=== PATIENT | male | born 1970 ===

== ENCOUNTER 2017-07-19 02:30 | Inpatient (IN) | payer MEDICAID, OTHER ==
[2017-07-19 02:38] VITALS: BMI 32.8
--- NOTE | 2017-07-19 02:43 | C.PDOC ---
History Of Present Illness pt found next to a building by police. ems was called. Pt not answering questions. was hypertensive at the scene. No obvious signs of trauma. Unable to obtain any history from the patient. he just grunts. Moves all extremities Time Seen by Provider: 07/19/17 02:31 Chief Complaint (Nursing): Altered Mental Status History Per: EMS History/Exam Limitations: Clinical Condition Onset/Duration Of Symptoms: Unknown Current Symptoms Are (Timing): Still Present Usual Baseline: Unknown Exacerbating Factor(s): Unknown Use Of Anticoag/Antiplatelets: Unknown Speech Is: Other (grunting) Decreased Ability To: Stand, Walk, Sit Severity: Severe Pain Scale Rating Of: 10 Additional History Per: EMS Associated Symptoms: Vomiting Past Medical History Reviewed: Historical Data, Nursing Documentation, Vital Signs Vital Signs: Last Vital Signs Temp 98 F 07/19/17 02:36 Pulse 82 07/19/17 04:29 Resp 16 07/19/17 04:29 BP 156/89 H 07/19/17 04:29 Pulse Ox 96 07/19/17 04:47 Family History: States: No Known Family Hx Review Of Systems Review Of Systems: ROS cannot be obtained secondary to pt's inabilty to answer questions. Physical Exam - Physical Exam Skin: Diaphoretic, Pale Head: Atraumatic, Normacephalic Eye(s): bilateral: Abnormal Pupil (pinpoint) Ear(s): Bilateral: Normal Nose: Normal Oral Mucosa: Moist Tongue: Normal Appearing Lips: Normal Appearing Neck: Supple Chest: Symmetrical Cardiovascular: Rhythm Regular Respiratory: No Rales, Rhonchi, No Wheezing Gastrointestinal/Abdominal: Bowel Sounds (tympanic to percussion), Soft, Tenderness (llq), Distention, Guarding, No Rebound, No Hernia Extremity: No Pedal Edema, Capillary Refill (wnl) Extremity: Bilateral: Atraumatic, Normal Color And Temperature Pulses: Left Dorsalis Pedis: Normal, Right Dorsalis Pedis: Normal Neurological/Psych: Other (grunting, moving all extremities ) Gait: Unable To Assess ED Course And Treatment - Laboratory Results Result Diagrams: 07/19/17 02:54 07/19/17 02:54 ECG: Interpreted By Me, Viewed By Me ECG Rhythm: Sinus Rhythm (73), Nonspecific Changes O2 Sat by Pulse Oximetry: 96 Pulse Ox Interpretation: Normal - Radiology CXR: Interpreted by Me, Viewed By Me Progress Note: 2:33 code stroke called. 3:[address] larson. awaiting ct results. 3:15 as per nurse pt did speak in [place] to the director of clinical applications, states that he has abdominal pain. nods to some questions in the ed. 3:22 when asked in [place], pt showed that he had abdominal pain for about 7 days. showed days using his fingers. 3:45 some family friends at bedside. Pt now that pain is controlled states that he had abdominal pain. denies any alcohol use Critical Care Time - Critical Care Note Total Time (in mins): 45 Documented critical care: time excludes all time spent performing seperately billable procedures. NIHSS Stroke Scale - Date/Time Evaluation Performed Date Performed: 07/19/17 Time Performed: 02:31 When Was NIHSS Performed: Baseline - How Severe is the Stoke Level of Consciousness: 1=Drowsy LOC to Questions: 2=Neither correct LOC to commands: 2=Neither correct Best Gaze: 0=Normal Visual: 0=No visual loss Facial: 0=Normal Motor Arm - Left: 0=No drift Motor Arm - Right: 0=No drift Motor Leg - Left: 0=No drift Motor Leg - Right: 0=No drift Limb Ataxia: 0=Absent Sensory: 0=Normal Best Language: 2=Severe aphasia Dysarthia: 2=Severe, near unintelligible or worse Extinction & Inattention (Neglect): 0=Normal, no object Score: 9 Severity Of Stroke: 5-15= Moderate Stroke Disposition Discussed With DrBridgett: Francisco Le Comment: accepted the pt onhis service and took over the care at 5:11 AM Counseled Patient/Family Regarding: Studies Performed, Diagnosis - Disposition Disposition: HOSPITALIZED Disposition Time: 02:40 Condition: GUARDED Forms: Apaja (Bruneian) - Clinical Impression Clinical Impression: Abdominal pain, Acute pancreatitis Decision To Admit - Pt Status Changed To: Hospital Disposition Of: Inpatient - Admit Certification Admit to Inpatient:: After my assessment, the patient will require hospitalization for at least two midnights. This is because of the severity of symptoms shown, intensity of services needed, and/or the medical risk in this patient being treated as an outpatient. - InPatient: Physician Admission Certification:: After my assessment, the patient will require hospitalization for at least two midnights. This is because of the severity of symptoms shown, intensity of services needed, and/or the medical risk in this patient being treated as an outpatient. - . Bed Request Type: Telemetry Admitting Physician: Francisco Le Patient Diagnosis: Abdominal pain, Acute pancreatitis
[2017-07-19 03:01] LABS: BASO % 0.3 % (0.0-2.0); EOS # 0.3 K/uL (0.0-0.7); EOS % 3.5 % (0.0-4.0); HEMOGLOBIN 15.4 g/dL (12.0-18.0); LYMPH # 3.2 K/uL (1.0-4.3); LYMPH % 40.2 % (20.0-40.0); MEAN CELL VOLUME 83.7 fL (80.0-94.0); MEAN CORPUSCULAR HEMOGLOBIN 28.9 pg (27.0-31.0); MEAN CORPUSCULAR HGB CONC 34.6 g/dL (33.0-37.0); MEAN PLATELET VOLUME 9.9 fL (7.2-11.7); MONO # 0.9 K/uL (0.0-0.8); MONO % 11.8 % (0.0-10.0); NEUT # 3.5 K/uL (1.8-7.0); NEUT % 44.2 % (50.0-75.0); NRBC % 0.1 % (0.0-2.0); RBC 5.32 Mil/uL (4.40-5.90); RED CELL DISTRIBUTION WIDTH 12.9 % (11.5-14.5)
[2017-07-19 03:05] LABS: VENOUS BLOOD GAS BASE EXCESS 3.1 mmol/L (0.0-2.0); VENOUS BLOOD GAS PCO2 56 mmHg (40-60); VENOUS BLOOD GAS PO2 17 mm/Hg (30-55); VENOUS BLOOD PH 7.34 (7.32-7.43)
[2017-07-19 03:12] LABS: ALB/GLOB RATIO 1.5 (1.0-2.1); ALBUMIN 4.5 g/dL (3.5-5.0); ALT/SGPT 27 U/L (21-72); AST/SGOT 25 U/L (17-59); BLOOD UREA NITROGEN 21 mg/dL (9-20); CALCIUM 9.2 mg/dl (8.6-10.4); GFR AFRICAN-AMERICAN > 60; GFR NON-AFRICAN AMERICAN > 60; HDL CHOLESTEROL 46 mg/dL (30-70)
[2017-07-19 03:23] LABS: LDL CHOLESTEROL 129 mg/dL (0-129)
[2017-07-19 03:28] LABS: BARBITURATES, UR NEGATIVE (NEGATIVE); BENZODIAZEPINES, UR NEGATIVE (NEGATIVE); OPIATES, UR NEGATIVE (NEGATIVE); PHENCYCLIDINE, UR NEGATIVE (NEGATIVE)
[2017-07-19] MEDS ORDERED: Morphine 4 MG/ML VIAL ONE ×3 (03:29→09:01)
[2017-07-19 04:03] LABS: URINE BILIRUBIN NEGATIVE (NEGATIVE); URINE BLOOD NEGATIVE (NEGATIVE); URINE CLARITY Clear (Clear); URINE COLOR Straw (YELLOW); URINE GLUCOSE (UA) 2+ mg/dL (Normal); URINE LEUKOCYTE ESTERASE NEG Leu/uL (Negative); URINE NITRATE NEGATIVE (NEGATIVE); URINE PROTEIN NEGATIVE (NEGATIVE); URINE UROBILINOGEN NORMAL mg/dL (0.2-1.0)
--- NOTE | 2017-07-19 04:11 | CT ---
EXAM: CT Angiography Head With Intravenous Contrast CLINICAL HISTORY: 47 years old, male; Signs and symptoms; Other: Not respond; Additional info: Code stroke TECHNIQUE: Axial computed tomographic angiography images of the head with intravenous contrast using CT angiography protocol. All CT scans at this facility use one or more dose reduction techniques, viz.: automated exposure control; ma/kV adjustment per patient size (including targeted exams where dose is matched to indication; i.e. head); or iterative reconstruction technique. MIP reconstructed images were created and reviewed. Coronal and sagittal reformatted images were created and reviewed. CONTRAST: 100 mL of [id number] administered intravenously. COMPARISON: No relevant prior studies available. FINDINGS: No wood repatcher view provided. No noncontrast images provided thus intracranial hemorrhage cannot be excluded. The internal carotid arteries are patent. The middle cerebral arteries are patent. The anterior cerebral arteries appear diminutive however are visualized. The basilar artery is diminutive however patent. The P1 segment of the right posterior cerebral artery appears atrophic with the P2 segment being supplied by the anterior circulation. The left posterior cerebral artery is patent. There appears to be decreased morrison-white matter differentiation, a finding concerning for developing diffuse edema. IMPRESSION: No acute occlusion. The vessels appear somewhat diminutive in general and the morrison-white matter differentiation appears decreased, the combination of findings raises concern for developing edema. Clinical correlation is recommended. Please note no wood repatcher, 3-D recons, or noncontrast images were provided. EXAM: CT Angiography Neck With Intravenous Contrast EXAM DATE/TIME: 07/19/2017 2:38 AM CLINICAL HISTORY: 47 years old, male; Signs and symptoms; Other: Not respond; Additional info: Code stroke TECHNIQUE: Axial computed tomographic angiography images of the neck with intravenous contrast using CT angiography protocol. All CT scans at this facility use one or more dose reduction techniques, viz.: automated exposure control; ma/kV adjustment per patient size (including targeted exams where dose is matched to indication; i.e. head); or iterative reconstruction technique. MIP reconstructed images were created and reviewed. Coronal and sagittal reformatted images were created and reviewed. CONTRAST: 100 mL of [id number] administered intravenously. COMPARISON: No relevant prior studies available. FINDINGS: No wood repatcher view was provided. Patient motion is present limiting exam. There is a dominant left vertebral artery. The distal right vertebral artery is not well. I suspect it may be hypotrophic or possibly normal variant termination into another vessel. Please note 3-D reconstructions were not provided. The basilar artery is diminutive however appears patent. The common carotid and cervical portions of the internal carotid arteries are patent without occlusion or dissection. The soft tissues of the neck appear normal. The airway is patent. Limited evaluation of the cervical vertebrae due to artifact. Dedicated CT of the spine could be performed if there is concern for cervical spine injury. IMPRESSION: Patient motion. Dominant left vertebral artery. No wood repatcher view provided.
[2017-07-19 04:17] LABS: BARBITURATES, UR NEGATIVE (NEGATIVE); BENZODIAZEPINES, UR NEGATIVE (NEGATIVE); PHENCYCLIDINE, UR NEGATIVE (NEGATIVE)
[2017-07-19 04:20] LABS: OPIATES, UR POSITIVE (NEGATIVE)
--- NOTE | 2017-07-19 04:32 | CT ---
EXAM: CT Abdomen and Pelvis With Intravenous Contrast CLINICAL HISTORY: 47 years old, male; Pain; Other: Not repond / code stroke; Other: Not respond TECHNIQUE: Axial computed tomography images of the abdomen and pelvis with intravenous contrast. All CT scans at this facility use one or more dose reduction techniques, viz.: automated exposure control; ma/kV adjustment per patient size (including targeted exams where dose is matched to indication; i.e. head); or iterative reconstruction technique. No reconstructions sent. CONTRAST: 100 mL of [id number] administered intravenously. COMPARISON: No relevant prior studies available. FINDINGS: The gallbladder, liver, and spleen are normal. The kidneys are in the excretory phase of contrast in the collecting systems and ureters and urinary bladder. The pancreatic body and tail are heterogeneous with significant surrounding fluid. The gastric lumen is dilated with a large amount of ingested fluid. This may be partially secondary to ileus from adjacent pancreatitis. Small bowel loops in the left upper quadrant demonstrate mild wall thickening suspected to be either incidental or secondary to adjacent pancreatitis. A normal appendix is identified on axial series 6 images 130 - 142. IMPRESSION: Heterogeneous edematous pancreatic parenchyma with surrounding fluid. Findings supportive of pancreatitis. Recommend correlation with amylase and lipase. Findings discussed with Dr. Russell. EXAM: CT Chest With Intravenous Contrast EXAM DATE/TIME: 07/19/2017 2:38 AM CLINICAL HISTORY: 47 years old, male; Pain; Other: Not repond / code stroke; Other: Not respond TECHNIQUE: Axial computed tomography images of the chest with intravenous contrast. All CT scans at this facility use one or more dose reduction techniques, viz.: automated exposure control; ma/kV adjustment per patient size (including targeted exams where dose is matched to indication; i.e. head); or iterative reconstruction technique. Coronal and sagittal reformatted images were created and reviewed. CONTRAST: 100 mL of administered intravenously. COMPARISON: No relevant prior studies available. FINDINGS: No aortic dissection or aneurysm. No pleural or pericardial effussions. No focal infiltrates. Area of sclerosis is noted in the right fourth rib. IMPRESSION: No acute findings.
[2017-07-19] MEDS: Lactated Ringer's 1,000 ML IV SCH ×5 (05:16→21:00)
--- NOTE | 2017-07-19 06:03 | CP.PCM.HP ---
<Edvin Perkins - Last Filed: 07/19/17 06:10> History of Present Illness - History of Present Illness History of Present Illness: PGY-1 H&P for Dr. Le CC: Abdominal pain This is a 47 year old [place] speaking Citizen [place] male with PMHx pancreatitis who presents brought in by EMS when found slumped over in pain next to a building. Per patient, he experienced severe epigastric abdominal pain that began after eating a meal earlier in the evening. Pain was so severe that he was unable to communicate. After being given Morphine in the ED, patient noted improvement in pain and was able to communicate with staff. Patient has been here in the [place] for a few months per relatives at bedside. Patient states that he had a prior episode of pancreatitis about [place] that had similar presenting symptoms. PMHx: Pancreatitis PSHx: Denies Allergies: NKDA Social: Denies tobacco, alcohol, drugs. Family Hx: Denies Home medication: Denies Present on Admission - Present on Admission Any Indicators Present on Admission: No Review of Systems - Constitutional Constitutional: absent: Chills, Fever - EENT Eyes: absent: Change in Vision - Cardiovascular Cardiovascular: absent: Chest Pain - Respiratory Respiratory: absent: Dyspnea - Gastrointestinal Gastrointestinal: Abdominal Pain (epigastric), Nausea - Genitourinary Genitourinary: absent: Dysuria - Musculoskeletal Musculoskeletal: absent: Back Pain - Integumentary Integumentary: absent: Rash - Neurological Neurological: absent: Weakness - Psychiatric Psychiatric: Anxiety - Endocrine Endocrine: absent: Palpitations Meds Allergies/Adverse Reactions: Allergies Allergy/AdvReac Type Severity Reaction Status Date / Time No Known Allergies Allergy Unverified 07/19/17 02:36 Physical Exam - Constitutional Appears: No Acute Distress - Head Exam Head Exam: ATRAUMATIC, NORMOCEPHALIC - Eye Exam Eye Exam: EOMI, Normal appearance - ENT Exam ENT Exam: Mucous Membranes Moist - Respiratory Exam Respiratory Exam: Clear to Auscultation Bilateral, NORMAL BREATHING PATTERN. absent: Rales, Rhonchi, Wheezes - Cardiovascular Exam Cardiovascular Exam: REGULAR RHYTHM, +S1, +S2 - GI/Abdominal Exam GI & Abdominal Exam: Normal Bowel Sounds, Soft, Tenderness. absent: Distended, Rigid - Extremities Exam Extremities exam: Positive for: pedal pulses present. Negative for: pedal edema , tenderness - Neurological Exam Neurological exam: Alert, Oriented x3 - Psychiatric Exam Psychiatric exam: Anxious - Skin Skin Exam: Intact, Warm Results - Vital Signs Recent Vital Signs: Last Vital Signs Temp 98 F 07/19/17 02:36 Pulse 76 07/19/17 05:02 Resp 16 07/19/17 05:02 BP 153/97 H 07/19/17 05:02 Pulse Ox 96 07/19/17 05:12 - Labs Result Diagrams: 07/19/17 02:54 07/19/17 02:54 Labs: Laboratory Results - last 24 hr 07/19/17 07/19/17 07/19/17 02:54 02:54 02:54 WBC 8.0 RBC 5.32 Hgb 15.4 Hct 44.5 MCV 83.7 MCH 28.9 MCHC 34.6 RDW 12.9 Plt Count 194 MPV 9.9 Neut % (Auto) 44.2 L Lymph % (Auto) 40.2 H [place] % (Auto) 11.8 H Eos % (Auto) 3.5 Baso % (Auto) 0.3 Neut # 3.5 Lymph # 3.2 [place] # 0.9 H Eos # 0.3 Baso # 0.0 PT 11.0 INR 1.0 APTT 30 pO2 VBG pH VBG pCO2 VBG HCO3 VBG Total CO2 VBG O2 Sat (Calc) VBG Base Excess VBG Potassium Glucose Lactate Crit Value Called To Crit Value Called By Crit Value Read Back Blood Gas Notified Time Sodium 135 Potassium 3.1 L Chloride 96 L Carbon Dioxide 29 Anion Gap 13 BUN 21 H Creatinine 1.0 Est GFR ( Amer) > 60 Est GFR (Non-Af Amer) > 60 Random Glucose 173 H Calcium 9.2 Total Bilirubin 0.4 AST 25 ALT 27 Alkaline Phosphatase 85 Troponin I < 0.0120 Total Protein 7.6 Albumin 4.5 Globulin 3.1 Albumin/Globulin Ratio 1.5 Triglycerides 129 Cholesterol 192 LDL Cholesterol Direct 129 HDL Cholesterol 46 Lipase Venous Blood Potassium Urine Color Urine Clarity Urine pH Ur Specific [place] Urine Protein Urine Glucose (UA) Urine Ketones Urine Blood Urine Nitrate Urine Bilirubin Urine Urobilinogen Ur Leukocyte Esterase Urine WBC (Auto) Urine RBC (Auto) Urine Opiates Screen Urine Methadone Screen Ur Barbiturates Screen Ur Phencyclidine Scrn Ur Amphetamines Screen U Benzodiazepines Scrn U Oth Cocaine Metabols U Cannabinoids Screen Alcohol, Quantitative < 20 H Blood Type Antibody Screen 07/19/17 07/19/17 07/19/17 03:00 03:09 03:09 WBC RBC Hgb Hct MCV MCH MCHC RDW Plt Count MPV Neut % (Auto) Lymph % (Auto) [place] % (Auto) Eos % (Auto) Baso % (Auto) Neut # Lymph # [place] # Eos # Baso # PT INR APTT pO2 17 L VBG pH 7.34 VBG pCO2 56 VBG HCO3 25.3 VBG Total CO2 31.9 H VBG O2 Sat (Calc) 25.9 L VBG Base Excess 3.1 H VBG Potassium 2.9 L Glucose 172 H Lactate 1.7 Crit Value Called To Dr pool Crit Value Called By Radha buenrostro rt Crit Value Read Back Y Blood Gas Notified Time 305 Sodium 138.0 Potassium Chloride 100.0 Carbon Dioxide Anion Gap BUN Creatinine Est GFR ( Amer) Est GFR (Non-Af Amer) Random Glucose Calcium Total Bilirubin AST ALT Alkaline Phosphatase Troponin I Total Protein Albumin Globulin Albumin/Globulin Ratio Triglycerides Cholesterol LDL Cholesterol Direct HDL Cholesterol Lipase Venous Blood Potassium 2.9 L Urine Color Urine Clarity Urine pH Ur Specific [place] Urine Protein Urine Glucose (UA) Urine Ketones Urine Blood Urine Nitrate Urine Bilirubin Urine Urobilinogen Ur Leukocyte Esterase Urine WBC (Auto) Urine RBC (Auto) Urine Opiates Screen Negative Urine Methadone Screen Negative Ur Barbiturates Screen Negative Ur Phencyclidine Scrn Negative Ur Amphetamines Screen Negative U Benzodiazepines Scrn Negative U Oth Cocaine Metabols Negative U Cannabinoids Screen Negative Alcohol, Quantitative Blood Type O POSITIVE Antibody Screen Negative 07/19/17 07/19/17 07/19/17 03:58 03:58 04:17 WBC RBC Hgb Hct MCV MCH MCHC RDW Plt Count MPV Neut % (Auto) Lymph % (Auto) [place] % (Auto) Eos % (Auto) Baso % (Auto) Neut # Lymph # [place] # Eos # Baso # PT INR APTT pO2 VBG pH VBG pCO2 VBG HCO3 VBG Total CO2 VBG O2 Sat (Calc) VBG Base Excess VBG Potassium Glucose Lactate Crit Value Called To Crit Value Called By Crit Value Read Back Blood Gas Notified Time Sodium Potassium Chloride Carbon Dioxide Anion Gap BUN Creatinine Est GFR ( Amer) Est GFR (Non-Af Amer) Random Glucose Calcium Total Bilirubin AST ALT Alkaline Phosphatase Troponin I Total Protein Albumin Globulin Albumin/Globulin Ratio Triglycerides Cholesterol LDL Cholesterol Direct HDL Cholesterol Lipase 59175 H Venous Blood Potassium Urine Color Straw Urine Clarity Clear Urine pH 6.0 Ur Specific [place] 1.035 H Urine Protein Negative Urine Glucose (UA) 2+ H Urine Ketones Negative Urine Blood Negative Urine Nitrate Negative Urine Bilirubin Negative Urine Urobilinogen Normal Ur Leukocyte Esterase Neg Urine WBC (Auto) < 1 Urine RBC (Auto) 1 Urine Opiates Screen Positive H Urine Methadone Screen Negative Ur Barbiturates Screen Negative Ur Phencyclidine Scrn Negative Ur Amphetamines Screen Negative U Benzodiazepines Scrn Negative U Oth Cocaine Metabols Negative U Cannabinoids Screen Negative Alcohol, Quantitative Blood Type Antibody Screen Assessment & Plan - Assessment and Plan (Free Text) Plan: Pancreatitis Lipase levels [id number] [place] Score 0 on admission f/u lipid profile CT Abdomen/pelvis shows heterogeneous edematous pancreatic parenchyma with surrounding fluid. Findings supportive of pancreatitis. NPO Morphine 4 mg IV Q4 prn severe pain Lactated Ringers @200cc/hr Zofran 4 mg Q6 prn Patient refused NGT for suctioning of gastric contents Prophylactic Measure NPO diet Protonix 40 mg IV daily SCDs Case DW Dr. Mimi Perkins PGY-1 <Francisco Le P - Last Filed: 07/19/17 06:29> Results - Vital Signs Recent Vital Signs: Last Vital Signs Temp 98 F 07/19/17 02:36 Pulse 76 07/19/17 05:02 Resp 16 07/19/17 05:02 BP 153/97 H 07/19/17 05:02 Pulse Ox 96 07/19/17 05:12 - Labs Result Diagrams: 07/19/17 02:54 07/19/17 02:54 Labs: Laboratory Results - last 24 hr 07/19/17 07/19/17 07/19/17 02:54 02:54 02:54 WBC 8.0 RBC 5.32 Hgb 15.4 Hct 44.5 MCV 83.7 MCH 28.9 MCHC 34.6 RDW 12.9 Plt Count 194 MPV 9.9 Neut % (Auto) 44.2 L Lymph % (Auto) 40.2 H [place] % (Auto) 11.8 H Eos % (Auto) 3.5 Baso % (Auto) 0.3 Neut # 3.5 Lymph # 3.2 [place] # 0.9 H Eos # 0.3 Baso # 0.0 PT 11.0 INR 1.0 APTT 30 pO2 VBG pH VBG pCO2 VBG HCO3 VBG Total CO2 VBG O2 Sat (Calc) VBG Base Excess VBG Potassium Glucose Lactate Crit Value Called To Crit Value Called By Crit Value Read Back Blood Gas Notified Time Sodium 135 Potassium 3.1 L Chloride 96 L Carbon Dioxide 29 Anion Gap 13 BUN 21 H Creatinine 1.0 Est GFR ( Amer) > 60 Est GFR (Non-Af Amer) > 60 Random Glucose 173 H Calcium 9.2 Total Bilirubin 0.4 AST 25 ALT 27 Alkaline Phosphatase 85 Troponin I < 0.0120 Total Protein 7.6 Albumin 4.5 Globulin 3.1 Albumin/Globulin Ratio 1.5 Triglycerides 129 Cholesterol 192 LDL Cholesterol Direct 129 HDL Cholesterol 46 Lipase Venous Blood Potassium Urine Color Urine Clarity Urine pH Ur Specific [place] Urine Protein Urine Glucose (UA) Urine Ketones Urine Blood Urine Nitrate Urine Bilirubin Urine Urobilinogen Ur Leukocyte Esterase Urine WBC (Auto) Urine RBC (Auto) Urine Opiates Screen Urine Methadone Screen Ur Barbiturates Screen Ur Phencyclidine Scrn Ur Amphetamines Screen U Benzodiazepines Scrn U Oth Cocaine Metabols U Cannabinoids Screen Alcohol, Quantitative < 20 H Blood Type Antibody Screen 07/19/17 07/19/17 07/19/17 03:00 03:09 03:09 WBC RBC Hgb Hct MCV MCH MCHC RDW Plt Count MPV Neut % (Auto) Lymph % (Auto) [place] % (Auto) Eos % (Auto) Baso % (Auto) Neut # Lymph # [place] # Eos # Baso # PT INR APTT pO2 17 L VBG pH 7.34 VBG pCO2 56 VBG HCO3 25.3 VBG Total CO2 31.9 H VBG O2 Sat (Calc) 25.9 L VBG Base Excess 3.1 H VBG Potassium 2.9 L Glucose 172 H Lactate 1.7 Crit Value Called To Dr pool Crit Value Called By Radha buenrostro rt Crit Value Read Back Y Blood Gas Notified Time 305 Sodium 138.0 Potassium Chloride 100.0 Carbon Dioxide Anion Gap BUN Creatinine Est GFR ( Amer) Est GFR (Non-Af Amer) Random Glucose Calcium Total Bilirubin AST ALT Alkaline Phosphatase Troponin I Total Protein Albumin Globulin Albumin/Globulin Ratio Triglycerides Cholesterol LDL Cholesterol Direct HDL Cholesterol Lipase Venous Blood Potassium 2.9 L Urine Color Urine Clarity Urine pH Ur Specific [place] Urine Protein Urine Glucose (UA) Urine Ketones Urine Blood Urine Nitrate Urine Bilirubin Urine Urobilinogen Ur Leukocyte Esterase Urine WBC (Auto) Urine RBC (Auto) Urine Opiates Screen Negative Urine Methadone Screen Negative Ur Barbiturates Screen Negative Ur Phencyclidine Scrn Negative Ur Amphetamines Screen Negative U Benzodiazepines Scrn Negative U Oth Cocaine Metabols Negative U Cannabinoids Screen Negative Alcohol, Quantitative Blood Type O POSITIVE Antibody Screen Negative 07/19/17 07/19/17 07/19/17 03:58 03:58 04:17 WBC RBC Hgb Hct MCV MCH MCHC RDW Plt Count MPV Neut % (Auto) Lymph % (Auto) [place] % (Auto) Eos % (Auto) Baso % (Auto) Neut # Lymph # [place] # Eos # Baso # PT INR APTT pO2 VBG pH VBG pCO2 VBG HCO3 VBG Total CO2 VBG O2 Sat (Calc) VBG Base Excess VBG Potassium Glucose Lactate Crit Value Called To Crit Value Called By Crit Value Read Back Blood Gas Notified Time Sodium Potassium Chloride Carbon Dioxide Anion Gap BUN Creatinine Est GFR ( Amer) Est GFR (Non-Af Amer) Random Glucose Calcium Total Bilirubin AST ALT Alkaline Phosphatase Troponin I Total Protein Albumin Globulin Albumin/Globulin Ratio Triglycerides Cholesterol LDL Cholesterol Direct HDL Cholesterol Lipase [id number] H Venous Blood Potassium Urine Color Straw Urine Clarity Clear Urine pH 6.0 Ur Specific [place] 1.035 H Urine Protein Negative Urine Glucose (UA) 2+ H Urine Ketones Negative Urine Blood Negative Urine Nitrate Negative Urine Bilirubin Negative Urine Urobilinogen Normal Ur Leukocyte Esterase Neg Urine WBC (Auto) < 1 Urine RBC (Auto) 1 Urine Opiates Screen Positive H Urine Methadone Screen Negative Ur Barbiturates Screen Negative Ur Phencyclidine Scrn Negative Ur Amphetamines Screen Negative U Benzodiazepines Scrn Negative U Oth Cocaine Metabols Negative U Cannabinoids Screen Negative Alcohol, Quantitative Blood Type Antibody Screen Attending/Attestation - Attestation I have personally seen and examined this patient.: Yes I have fully participated in the care of the patient.: Yes I have reviewed all pertinent clinical information: Yes Notes (Text): Assessment * Acute pancreatitis, not h/o alcoholism, clinically not gb related, h/o pancreatitis a year back. * Mild hypokalemia Plan * Supportive care * Pain control * IVF * TG levels * NPO, offered NG aspiration of gastric contents to improve symptoms, but patient declined * w/u later point to assess for necrosis, cyst, abscess * GI/DVT prophylaxis *
--- NOTE | 2017-07-19 06:45 | RAD ---
Chest x-ray single frontal view History: Code stroke. Comparison: None available. Findings: Mild venous congestion. Right hilar prominence. Right paratracheal airspace opacity. Heart size within normal limits. Impression: Mild venous congestion. Right hilar prominence. Right paratracheal airspace opacity.
--- NOTE | 2017-07-19 09:53 | CP.PCM.PN ---
<WilbertDonaldo - Last Filed: 07/19/17 12:10> Subjective - Date & Time of Evaluation Date of Evaluation: 07/19/17 Time of Evaluation: 09:51 - Subjective Subjective: PGY-[address] Birch's service Pt seen and examined at bedside. Nursing reports no acute events overnight. Patient found lying in bed alert and oriented x 3. He reports his abdominal pain began seven days prior, is worst by his umbilicus, but his pain is diffuse. He denies recent episode of nausea/vomiting, but his "belly feels full " despite not eating. He denies passing gas or BM overnight. He was informed about the probable ileus and consented to NGT placement. Denies chest pain, palpitations, fever, chills, or headache. Objective - Vital Signs/Intake and Output Vital Signs (last 24 hours): Temp Pulse Resp BP Pulse Ox 97.3 F L 82 17 148/94 H 97 07/19/17 07:45 07/19/17 09:04 07/19/17 09:04 07/19/17 09:04 07/19/17 09:04 Intake and Output: 07/19/17 07/19/17 06:59 18:59 Intake Total 400 Output Total 600 Balance -200 - Medications Medications: Current Medications Lactated Ringer's (Lactated Ringer's) 1,000 mls @ 200 mls/hr IV .Q5H [facility] Last Admin: 07/19/17 05:16 Dose: 200 mls/hr Potassium Chloride 20 meq/ (Sodium Chloride) 110 mls @ 55 mls/hr IV ONCE ONE Stop: 07/19/17 11:59 Last Admin: 07/19/17 09:43 Dose: 55 mls/hr Morphine Sulfate (Morphine) 4 mg IVP Q4 PRN PRN Reason: Pain, severe (8-10) Last Admin: 07/19/17 09:04 Dose: 4 mg Ondansetron HCl (Zofran Inj) 4 mg IVP Q6H PRN PRN Reason: Nausea/Vomiting Pantoprazole Sodium (Protonix Inj) 40 mg IVP DAILY [facility] Last Admin: 07/19/17 09:48 Dose: 40 mg - Labs Labs: 07/19/17 02:54 07/19/17 02:54 PT 11.0 SECONDS (9.7-12.2) 07/19/17 02:54 INR 1.0 07/19/17 02:54 APTT 30 SECONDS (21-34) 07/19/17 02:54 - Constitutional Appears: Non-toxic, No Acute Distress, Older Than Stated Age - Head Exam Head Exam: ATRAUMATIC, NORMAL INSPECTION - Eye Exam Eye Exam: EOMI, Normal appearance. absent: Scleral icterus - ENT Exam ENT Exam: Mucous Membranes Moist - Neck Exam Neck Exam: Full ROM - Respiratory Exam Respiratory Exam: Clear to Ausculation Bilateral, NORMAL BREATHING PATTERN. absent: Rales, Rhonchi, Wheezes - Cardiovascular Exam Cardiovascular Exam: REGULAR RHYTHM, +S1, +S2 - GI/Abdominal Exam GI & Abdominal Exam: Distended (mild), Guarding (voluntary at umbilicus), Soft, Tenderness (worst epigastric, diffuse pain), Normal Bowel Sounds. absent: Firm , Hernia, Pulsatile Mass, Rebound - Extremities Exam Extremities Exam: Normal Inspection. absent: Pedal Edema - Back Exam Back Exam: absent: CVA tenderness (L), CVA tenderness (R) - Neurological Exam Neurological Exam: Alert, Awake, Oriented x3 - Psychiatric Exam Psychiatric exam: Normal Affect, Normal Mood Assessment and Plan - Assessment and Plan (Free Text) Plan: Pancreatitis Admit to med/surg Unknown etiology: Pt denies alcohol use Lipase levels [address] CT Abdomen/pelvis shows heterogeneous edematous pancreatic parenchyma with surrounding fluid. Findings supportive of pancreatitis. Augustin Score 0 on admission Lipid level: Cholesterol 192, LDL 129, HDL 46, Trigl 129 LFTs/Bilirubin: WNL Dr. Coleman, GI distributor sales consultant, help appreciated Dr. Brennan, security sales consultant, help appreciated - f/u reccs f/u MRCP, US Abd f/u AM labs, AM lipase NPO NGT placed Morphine 4 mg IV Q4 prn severe pain Lactated Ringers @250cc/hr Zofran 4 mg Q6 prn Ileus CT Abdomen/pelvis shows heterogeneous edematous pancreatic parenchyma with surrounding fluid. Findings supportive of pancreatitis. Gastric lumen dilated with large amount of ingested fluid. MAy be secondary ileus from adjacent pancreatitis. NGT placed Dr. Coleman, GI distributor sales consultant, help appreciated Dr. Brennan, security sales consultant, help appreciated - f/u reccs AMS Resolved - pt found slumped non-communicative due to pain CT Head/Angio: negative for acute bleed. Troponin negative x1 EKG: NSR @ 75bpm, NO acute st - t wave changes Hypokalemia 3.1 on admission, repleted f/u AM labs Elevated blood glucose f/u A1C (not done on weekend by lab) ACHS Monitor Prophylactic Measure NPO diet Protonix 40 mg IV daily SCDs Discussed with Dr. Birch <Giovanni Birch H - Last Filed: 07/19/17 14:55> Objective - Vital Signs/Intake and Output Vital Signs (last 24 hours): Temp Pulse Resp BP Pulse Ox 97.3 F L 82 17 148/94 H 97 07/19/17 07:45 07/19/17 09:04 07/19/17 09:04 07/19/17 09:04 07/19/17 09:04 Intake and Output: 07/19/17 07/19/17 06:59 18:59 Intake Total 400 Output Total 600 Balance -200 - Medications Medications: Current Medications Lactated Ringer's (Lactated Ringer's) 1,000 mls @ 250 mls/hr IV .Q4H [facility] Last Admin: 07/19/17 12:48 Dose: 250 mls/hr Morphine Sulfate (Morphine) 4 mg IVP Q4 PRN PRN Reason: Pain, severe (8-10) Last Admin: 07/19/17 09:04 Dose: 4 mg Ondansetron HCl (Zofran Inj) 4 mg IVP Q6H PRN PRN Reason: Nausea/Vomiting Pantoprazole Sodium (Protonix Inj) 40 mg IVP DAILY [facility] Last Admin: 07/19/17 09:48 Dose: 40 mg - Labs Labs: 07/19/17 02:54 07/19/17 02:54 PT 11.0 SECONDS (9.7-12.2) 07/19/17 02:54 INR 1.0 07/19/17 02:54 APTT 30 SECONDS (21-34) 07/19/17 02:54 Attending/Attestation - Attestation I have personally seen and examined this patient.: Yes I have fully participated in the care of the patient.: Yes I have reviewed all pertinent clinical information, including history, physical exam and plan: Yes Notes (Text): 07/19/17 14:55 Medical attending: Patient was seen and examined by the medical office representative and myself. Agree with the above note by the medical office representative. The patient was not in any acute distress when we saw him. He was still in the ER waiting on bed assignment. Reviewed the CT scan - the gastric lumen was very distended. Radiology reported conern for illeus. Also has pancreatitis on CT as well as elevated Lipase. He is on IVF and NPO at this time. Last night he did not want NGT, but he was still having pain when we saw this morning. So he agreed to NGT and we placed this in the morning earlier. With reguard to the pancreatitis, his LFTs, Billirubin are not elevated and the CT did not report on gall stones. Will get abdominal ultrasound and also MRCP for further information. He also denied drinking alcohol. thank you Giovanni Birch
[2017-07-19] MEDS ORDERED: Lactated Ringer's 1,000 ML ONE (11:16)
--- NOTE | 2017-07-19 12:43 | RAD ---
Chest x-ray single frontal view History: NG tube placement. Comparison: None available. Findings: Mild venous congestion. Right hilar prominence. NG tube extending into the stomach. Heart size within normal limits. Degenerative changes in the spine. Impression: NG tube extending into the stomach.
--- NOTE | 2017-07-19 14:19 | US ---
Abdominal ultrasound History: Pancreatitis. Comparison: None available. Technique: Real-time sonography was performed through the abdomen. Findings: Liver: 14.9 centimeters in length. Normal echogenicity. Gallbladder: No calculi or sludge. Normal wall thickness of 2.4 millimeters. Negative sonographic Tillman's sign. Common bile duct measures 4 millimeters, within normal limits. Thickened and heterogeneous pancreas consistent with known pancreatitis. Limited visualization of the pancreas overall. Spleen measures 11.9 centimeters in length, trace free fluid by spleen. Limited visualization of the aorta and IVC. Impression: Thickened and heterogeneous pancreas consistent with known pancreatitis. Limited visualization of the pancreas. Small amount of free fluid by the spleen.
--- NOTE | 2017-07-19 18:05 | CP.PCM.CON ---
History of Present Illness - History of Present Illness History of Present Illness: ASked today to see pt for Gi Service consult for pancreatitis. Pt was foung outside of building and brought to . No signs of trauma. He reports back pain 10 days ago. And today severe ep[ig pain- sharp, constant. PMH- pancreatitis in past- unclear etiology/. Pt seen now with RN. Denies fever, chills, lipid disease, autoimmune dis, meds, herbals, vitamins, trauma Review of Systems - Review of Systems Systems not reviewed;Unavailable: Altered Mental Status - Constitutional Constitutional: absent: Anorexia, Chills, Fever, Headache, Night Sweats, Weight Gain, Weight Loss - EENT Eyes: absent: Photophobia Nose/Mouth/Throat: absent: Dysphagia - Cardiovascular Cardiovascular: absent: Chest Pain, Dyspnea, Palpitations, Pedal Edema - Respiratory Respiratory: absent: Cough, Dyspnea, Hemoptysis, Wheezing - Gastrointestinal Gastrointestinal: Abdominal Pain. absent: Constipation, Cramping, Diarrhea, Dysphagia, Hematemesis, Hematochezia, Loose Stools, Melena, Nausea, Vomiting - Genitourinary Genitourinary: absent: Flank Pain, Hematuria - Musculoskeletal Musculoskeletal: absent: Muscle Cramps, Muscle Weakness - Integumentary Integumentary: absent: Jaundice Meds Allergies/Adverse Reactions: Allergies Allergy/AdvReac Type Severity Reaction Status Date / Time No Known Allergies Allergy Unverified 07/19/17 02:36 - Medications Medications: Current Medications Lactated Ringer's (Lactated Ringer's) 1,000 mls @ 250 mls/hr IV .Q4H [facility] Last Admin: 07/19/17 12:48 Dose: 250 mls/hr Morphine Sulfate (Morphine) 4 mg IVP Q4 PRN PRN Reason: Pain, severe (8-10) Last Admin: 07/19/17 09:04 Dose: 4 mg Ondansetron HCl (Zofran Inj) 4 mg IVP Q6H PRN PRN Reason: Nausea/Vomiting Pantoprazole Sodium (Protonix Inj) 40 mg IVP DAILY [facility] Last Admin: 07/19/17 09:48 Dose: 40 mg Physical Exam - Constitutional Appears: Non-toxic - ENT Exam Additional comments: NG tube in place - Neck Exam Neck exam: Positive for: Full Rom - Respiratory Exam Respiratory Exam: Clear to Auscultation Bilateral - Cardiovascular Exam Cardiovascular Exam: RRR - GI/Abdominal Exam GI & Abdominal Exam: Normal Bowel Sounds, Soft, Tenderness. absent: Bruit, Distended, Guarding, Mass, Rebound, Rigid - Extremities Exam Extremities exam: Negative for: pedal edema - Neurological Exam Neurological exam: Alert, Oriented x3 Results - Vital Signs Recent Vital Signs: Last Vital Signs Temp 97.4 F L 07/19/17 17:12 Pulse 69 07/19/17 17:12 Resp 17 07/19/17 17:12 BP 147/91 H 07/19/17 17:12 Pulse Ox 96 07/19/17 17:12 - Labs Result Diagrams: 07/19/17 02:54 07/19/17 02:54 Labs: Laboratory Results - last 24 hr 07/19/17 07/19/17 07/19/17 02:54 02:54 02:54 WBC 8.0 RBC 5.32 Hgb 15.4 Hct 44.5 MCV 83.7 MCH 28.9 MCHC 34.6 RDW 12.9 Plt Count 194 MPV 9.9 Neut % (Auto) 44.2 L Lymph % (Auto) 40.2 H [place] % (Auto) 11.8 H Eos % (Auto) 3.5 Baso % (Auto) 0.3 Neut # 3.5 Lymph # 3.2 [place] # 0.9 H Eos # 0.3 Baso # 0.0 PT 11.0 INR 1.0 APTT 30 pO2 VBG pH VBG pCO2 VBG HCO3 VBG Total CO2 VBG O2 Sat (Calc) VBG Base Excess VBG Potassium Glucose Lactate Crit Value Called To Crit Value Called By Crit Value Read Back Blood Gas Notified Time Sodium 135 Potassium 3.1 L Chloride 96 L Carbon Dioxide 29 Anion Gap 13 BUN 21 H Creatinine 1.0 Est GFR ( Amer) > 60 Est GFR (Non-Af Amer) > 60 Random Glucose 173 H Calcium 9.2 Total Bilirubin 0.4 AST 25 ALT 27 Alkaline Phosphatase 85 Troponin I < 0.0120 Total Protein 7.6 Albumin 4.5 Globulin 3.1 Albumin/Globulin Ratio 1.5 Triglycerides 129 Cholesterol 192 LDL Cholesterol Direct 129 HDL Cholesterol 46 Lipase Venous Blood Potassium Urine Color Urine Clarity Urine pH Ur Specific [place] Urine Protein Urine Glucose (UA) Urine Ketones Urine Blood Urine Nitrate Urine Bilirubin Urine Urobilinogen Ur Leukocyte Esterase Urine WBC (Auto) Urine RBC (Auto) Urine Opiates Screen Urine Methadone Screen Ur Barbiturates Screen Ur Phencyclidine Scrn Ur Amphetamines Screen U Benzodiazepines Scrn U Oth Cocaine Metabols U Cannabinoids Screen Alcohol, Quantitative < 20 H Blood Type Antibody Screen 07/19/17 07/19/17 07/19/17 03:00 03:09 03:09 WBC RBC Hgb Hct MCV MCH MCHC RDW Plt Count MPV Neut % (Auto) Lymph % (Auto) [place] % (Auto) Eos % (Auto) Baso % (Auto) Neut # Lymph # [place] # Eos # Baso # PT INR APTT pO2 17 L VBG pH 7.34 VBG pCO2 56 VBG HCO3 25.3 VBG Total CO2 31.9 H VBG O2 Sat (Calc) 25.9 L VBG Base Excess 3.1 H VBG Potassium 2.9 L Glucose 172 H Lactate 1.7 Crit Value Called To Dr pool Crit Value Called By Radha buenrostro rt Crit Value Read Back Y Blood Gas Notified Time 305 Sodium 138.0 Potassium Chloride 100.0 Carbon Dioxide Anion Gap BUN Creatinine Est GFR ( Amer) Est GFR (Non-Af Amer) Random Glucose Calcium Total Bilirubin AST ALT Alkaline Phosphatase Troponin I Total Protein Albumin Globulin Albumin/Globulin Ratio Triglycerides Cholesterol LDL Cholesterol Direct HDL Cholesterol Lipase Venous Blood Potassium 2.9 L Urine Color Urine Clarity Urine pH Ur Specific [place] Urine Protein Urine Glucose (UA) Urine Ketones Urine Blood Urine Nitrate Urine Bilirubin Urine Urobilinogen Ur Leukocyte Esterase Urine WBC (Auto) Urine RBC (Auto) Urine Opiates Screen Negative Urine Methadone Screen Negative Ur Barbiturates Screen Negative Ur Phencyclidine Scrn Negative Ur Amphetamines Screen Negative U Benzodiazepines Scrn Negative U Oth Cocaine Metabols Negative U Cannabinoids Screen Negative Alcohol, Quantitative Blood Type O POSITIVE Antibody Screen Negative 07/19/17 07/19/17 07/19/17 03:58 03:58 04:17 WBC RBC Hgb Hct MCV MCH MCHC RDW Plt Count MPV Neut % (Auto) Lymph % (Auto) [place] % (Auto) Eos % (Auto) Baso % (Auto) Neut # Lymph # [place] # Eos # Baso # PT INR APTT pO2 VBG pH VBG pCO2 VBG HCO3 VBG Total CO2 VBG O2 Sat (Calc) VBG Base Excess VBG Potassium Glucose Lactate Crit Value Called To Crit Value Called By Crit Value Read Back Blood Gas Notified Time Sodium Potassium Chloride Carbon Dioxide Anion Gap BUN Creatinine Est GFR ( Amer) Est GFR (Non-Af Amer) Random Glucose Calcium Total Bilirubin AST ALT Alkaline Phosphatase Troponin I Total Protein Albumin Globulin Albumin/Globulin Ratio Triglycerides Cholesterol LDL Cholesterol Direct HDL Cholesterol Lipase 32226 H Venous Blood Potassium Urine Color Straw Urine Clarity Clear Urine pH 6.0 Ur Specific [place] 1.035 H Urine Protein Negative Urine Glucose (UA) 2+ H Urine Ketones Negative Urine Blood Negative Urine Nitrate Negative Urine Bilirubin Negative Urine Urobilinogen Normal Ur Leukocyte Esterase Neg Urine WBC (Auto) < 1 Urine RBC (Auto) 1 Urine Opiates Screen Positive H Urine Methadone Screen Negative Ur Barbiturates Screen Negative Ur Phencyclidine Scrn Negative Ur Amphetamines Screen Negative U Benzodiazepines Scrn Negative U Oth Cocaine Metabols Negative U Cannabinoids Screen Negative Alcohol, Quantitative Blood Type Antibody Screen Assessment & Plan (1) Dehydration Assessment and Plan: Elev BUN. Found on floor Status: Acute (2) Hyperglycemia Status: Acute (3) Abdominal pain Assessment and Plan: Pancreatitis Also- stomach distended on CT- consider ileus from pancreatitis Status: Acute (4) Acute pancreatitis Assessment and Plan: Unclear etiology. Denies EtoH, meds, herbals, vitamins, lipidemia Consider auto-immune, pancreas divisum Ransons noted. REC: NPO Vigorous IV hydration- discussed rate with RN. Analgesics as needed TONY Follow labs: lipase, lytes, CBC Watch kidneys, pulmonary. Check MRI Status: Acute
--- NOTE | 2017-07-19 19:38 | CP.PCM.CON ---
History of Present Illness - History of Present Illness History of Present Illness: General Surgery Consult Note For Dr. Brennan This is a 47M with a PMH of pancreatitis who presented with severe epigastric abdominal pain that began after eating a meal. [place] denies any scorpion stings, ETOH, drug use. Abdominal US was negative for GB pathology. Patient states that he had a prior episode of pancreatitis last year with similar symptoms. PMHx: Pancreatitis PSHx: Denies Allergies: NKDA Social: Denies tobacco, alcohol, drugs. Review of Systems - Review of Systems All systems: reviewed and no additional remarkable complaints except - Gastrointestinal Gastrointestinal: Abdominal Pain, Bloating, Heartburn, Nausea Meds Allergies/Adverse Reactions: Allergies Allergy/AdvReac Type Severity Reaction Status Date / Time No Known Allergies Allergy Unverified 07/19/17 02:36 - Medications Medications: Current Medications Lactated Ringer's (Lactated Ringer's) 1,000 mls @ 250 mls/hr IV [facility] Last Admin: 07/19/17 17:45 Dose: 250 mls/hr Morphine Sulfate (Morphine) 4 mg IVP Q4 PRN PRN Reason: Pain, severe (8-10) Last Admin: 07/19/17 09:04 Dose: 4 mg Ondansetron HCl (Zofran Inj) 4 mg IVP Q6H PRN PRN Reason: Nausea/Vomiting Pantoprazole Sodium (Protonix Inj) 40 mg IVP DAILY [facility] Last Admin: 07/19/17 09:48 Dose: 40 mg Physical Exam - Constitutional Appears: Non-toxic, No Acute Distress - Head Exam Head Exam: ATRAUMATIC, NORMOCEPHALIC - Eye Exam Eye Exam: EOMI, Normal appearance - ENT Exam ENT Exam: Mucous Membranes Moist - Respiratory Exam Respiratory Exam: NORMAL BREATHING PATTERN - Cardiovascular Exam Cardiovascular Exam: +S1, +S2 - GI/Abdominal Exam GI & Abdominal Exam: Soft, Tenderness. absent: Guarding, Hernia, Pulsatile Mass , Rebound, Rigid - Neurological Exam Neurological exam: Alert, Oriented x3 - Psychiatric Exam Psychiatric exam: Normal Affect, Normal Mood - Skin Skin Exam: Dry, Intact Results - Vital Signs Recent Vital Signs: Last Vital Signs Temp 97.5 F L 07/19/17 17:35 Pulse 78 07/19/17 17:35 Resp 20 07/19/17 17:35 BP 144/84 07/19/17 17:35 Pulse Ox 96 07/19/17 17:35 - Labs Result Diagrams: 07/19/17 02:54 07/19/17 02:54 Labs: Laboratory Results - last 24 hr 07/19/17 07/19/17 07/19/17 02:54 02:54 02:54 WBC 8.0 RBC 5.32 Hgb 15.4 Hct 44.5 MCV 83.7 MCH 28.9 MCHC 34.6 RDW 12.9 Plt Count 194 MPV 9.9 Neut % (Auto) 44.2 L Lymph % (Auto) 40.2 H [place] % (Auto) 11.8 H Eos % (Auto) 3.5 Baso % (Auto) 0.3 Neut # 3.5 Lymph # 3.2 [place] # 0.9 H Eos # 0.3 Baso # 0.0 PT 11.0 INR 1.0 APTT 30 pO2 VBG pH VBG pCO2 VBG HCO3 VBG Total CO2 VBG O2 Sat (Calc) VBG Base Excess VBG Potassium Glucose Lactate Crit Value Called To Crit Value Called By Crit Value Read Back Blood Gas Notified Time Sodium 135 Potassium 3.1 L Chloride 96 L Carbon Dioxide 29 Anion Gap 13 BUN 21 H Creatinine 1.0 Est GFR ( Amer) > 60 Est GFR (Non-Af Amer) > 60 Random Glucose 173 H Calcium 9.2 Total Bilirubin 0.4 AST 25 ALT 27 Alkaline Phosphatase 85 Troponin I < 0.0120 Total Protein 7.6 Albumin 4.5 Globulin 3.1 Albumin/Globulin Ratio 1.5 Triglycerides 129 Cholesterol 192 LDL Cholesterol Direct 129 HDL Cholesterol 46 Lipase Venous Blood Potassium Urine Color Urine Clarity Urine pH Ur Specific [place] Urine Protein Urine Glucose (UA) Urine Ketones Urine Blood Urine Nitrate Urine Bilirubin Urine Urobilinogen Ur Leukocyte Esterase Urine WBC (Auto) Urine RBC (Auto) Urine Opiates Screen Urine Methadone Screen Ur Barbiturates Screen Ur Phencyclidine Scrn Ur Amphetamines Screen U Benzodiazepines Scrn U Oth Cocaine Metabols U Cannabinoids Screen Alcohol, Quantitative < 20 H Blood Type Antibody Screen 07/19/17 07/19/17 07/19/17 03:00 03:09 03:09 WBC RBC Hgb Hct MCV MCH MCHC RDW Plt Count MPV Neut % (Auto) Lymph % (Auto) [place] % (Auto) Eos % (Auto) Baso % (Auto) Neut # Lymph # [place] # Eos # Baso # PT INR APTT pO2 17 L VBG pH 7.34 VBG pCO2 56 VBG HCO3 25.3 VBG Total CO2 31.9 H VBG O2 Sat (Calc) 25.9 L VBG Base Excess 3.1 H VBG Potassium 2.9 L Glucose 172 H Lactate 1.7 Crit Value Called To Dr pool Crit Value Called By Radha buenrostro rt Crit Value Read Back Y Blood Gas Notified Time 305 Sodium 138.0 Potassium Chloride 100.0 Carbon Dioxide Anion Gap BUN Creatinine Est GFR ( Amer) Est GFR (Non-Af Amer) Random Glucose Calcium Total Bilirubin AST ALT Alkaline Phosphatase Troponin I Total Protein Albumin Globulin Albumin/Globulin Ratio Triglycerides Cholesterol LDL Cholesterol Direct HDL Cholesterol Lipase Venous Blood Potassium 2.9 L Urine Color Urine Clarity Urine pH Ur Specific [place] Urine Protein Urine Glucose (UA) Urine Ketones Urine Blood Urine Nitrate Urine Bilirubin Urine Urobilinogen Ur Leukocyte Esterase Urine WBC (Auto) Urine RBC (Auto) Urine Opiates Screen Negative Urine Methadone Screen Negative Ur Barbiturates Screen Negative Ur Phencyclidine Scrn Negative Ur Amphetamines Screen Negative U Benzodiazepines Scrn Negative U Oth Cocaine Metabols Negative U Cannabinoids Screen Negative Alcohol, Quantitative Blood Type O POSITIVE Antibody Screen Negative 07/19/17 07/19/17 07/19/17 03:58 03:58 04:17 WBC RBC Hgb Hct MCV MCH MCHC RDW Plt Count MPV Neut % (Auto) Lymph % (Auto) [place] % (Auto) Eos % (Auto) Baso % (Auto) Neut # Lymph # [place] # Eos # Baso # PT INR APTT pO2 VBG pH VBG pCO2 VBG HCO3 VBG Total CO2 VBG O2 Sat (Calc) VBG Base Excess VBG Potassium Glucose Lactate Crit Value Called To Crit Value Called By Crit Value Read Back Blood Gas Notified Time Sodium Potassium Chloride Carbon Dioxide Anion Gap BUN Creatinine Est GFR ( Amer) Est GFR (Non-Af Amer) Random Glucose Calcium Total Bilirubin AST ALT Alkaline Phosphatase Troponin I Total Protein Albumin Globulin Albumin/Globulin Ratio Triglycerides Cholesterol LDL Cholesterol Direct HDL Cholesterol Lipase 34354 H Venous Blood Potassium Urine Color Straw Urine Clarity Clear Urine pH 6.0 Ur Specific [place] 1.035 H Urine Protein Negative Urine Glucose (UA) 2+ H Urine Ketones Negative Urine Blood Negative Urine Nitrate Negative Urine Bilirubin Negative Urine Urobilinogen Normal Ur Leukocyte Esterase Neg Urine WBC (Auto) < 1 Urine RBC (Auto) 1 Urine Opiates Screen Positive H Urine Methadone Screen Negative Ur Barbiturates Screen Negative Ur Phencyclidine Scrn Negative Ur Amphetamines Screen Negative U Benzodiazepines Scrn Negative U Oth Cocaine Metabols Negative U Cannabinoids Screen Negative Alcohol, Quantitative Blood Type Antibody Screen Assessment & Plan - Assessment and Plan (Free Text) Assessment: 47M with acute pancreatitis NPO IVF Serial abdominal exams continue managment per medical team and GI team followup MRCP D/W Dr. Mika Clark PGY2
[2017-07-20] MEDS: Lactated Ringer's 1,000 ML IV SCH ×8 (02:35→21:56)
--- NOTE | 2017-07-20 07:59 | CP.PCM.PN ---
Subjective - Date & Time of Evaluation Date of Evaluation: 07/20/17 Time of Evaluation: 07:58 - Subjective Subjective: PGY-[address] Birch's service Pt seen and examined at bedside. Nursing reports no acute events overnight. Patient found lying in bed alert and oriented x 3. Objective - Vital Signs/Intake and Output Vital Signs (last 24 hours): Temp Pulse Resp BP Pulse Ox 99.0 F 79 20 132/78 95 07/19/17 23:40 07/20/17 04:00 07/19/17 23:40 07/19/17 23:40 07/19/17 23:40 Intake and Output: 07/20/17 07/20/17 06:59 18:59 Intake Total 3250 Output Total 2775 Balance 475 - Medications Medications: Current Medications Lactated Ringer's (Lactated Ringer's) 1,000 mls @ 250 mls/hr IV .Q4H [facility] Last Admin: 07/20/17 06:35 Dose: 250 mls/hr Morphine Sulfate (Morphine) 4 mg IVP Q4 PRN PRN Reason: Pain, severe (8-10) Last Admin: 07/19/17 09:04 Dose: 4 mg Ondansetron HCl (Zofran Inj) 4 mg IVP Q6H PRN PRN Reason: Nausea/Vomiting Pantoprazole Sodium (Protonix Inj) 40 mg IVP DAILY [facility] Last Admin: 07/19/17 09:48 Dose: 40 mg - Labs Labs: 07/19/17 02:54 07/19/17 02:54 PT 11.0 SECONDS (9.7-12.2) 07/19/17 02:54 INR 1.0 07/19/17 02:54 APTT 30 SECONDS (21-34) 07/19/17 02:54 - Additional Findings Additional findings: - Constitutional Appears: Non-toxic, No Acute Distress, Older Than Stated Age - Head Exam Head Exam: ATRAUMATIC, NORMAL INSPECTION - Eye Exam Eye Exam: EOMI, Normal appearance. absent: Scleral icterus - ENT Exam ENT Exam: Mucous Membranes Moist - Neck Exam Neck Exam: Full ROM - Respiratory Exam Respiratory Exam: Clear to Ausculation Bilateral, NORMAL BREATHING PATTERN. absent: Rales, Rhonchi, Wheezes - Cardiovascular Exam Cardiovascular Exam: REGULAR RHYTHM, +S1, +S2 - GI/Abdominal Exam GI & Abdominal Exam: Distended (mild), Guarding (voluntary at umbilicus), Soft, Tenderness (worst epigastric, diffuse pain), Normal Bowel Sounds. absent: Firm , Hernia, Pulsatile Mass, Rebound - Extremities Exam Extremities Exam: Normal Inspection. absent: Pedal Edema - Back Exam Back Exam: absent: CVA tenderness (L), CVA tenderness (R) - Neurological Exam Neurological Exam: Alert, Awake, Oriented x3 - Psychiatric Exam Psychiatric exam: Normal Affect, Normal Mood Assessment and Plan - Assessment and Plan (Free Text) Plan: Pancreatitis Admit to med/surg Unknown etiology: Pt denies alcohol use Lipase levels [id number] CT Abdomen/pelvis shows heterogeneous edematous pancreatic parenchyma with surrounding fluid. Findings supportive of pancreatitis. Augustin Score 0 on admission Lipid level: Cholesterol 192, LDL 129, HDL 46, Trigl 129 LFTs/Bilirubin: WNL Dr. Coleman, GI clinical science consultant, help appreciated Dr. Brennan, audit consultant, help appreciated - f/u reccs f/u MRCP, US Abd f/u AM labs, AM lipase NPO NGT placed Morphine 4 mg IV Q4 prn severe pain Lactated Ringers @250cc/hr Zofran 4 mg Q[address] Abdomen/pelvis shows heterogeneous edematous pancreatic parenchyma with surrounding fluid. Findings supportive of pancreatitis. Gastric lumen dilated with large amount of ingested fluid. MAy be secondary ileus from adjacent pancreatitis. NGT placed Dr. Coleman, GI clinical science consultant, help appreciated Dr. Brennan, audit consultant, help appreciated - f/u reccs AMS Resolved - pt found slumped non-communicative due to pain CT Head/Angio: negative for acute bleed. Troponin negative x1 EKG: NSR @ 75bpm, NO acute st - t wave changes Hypokalemia 3.1 on admission, repleted f/u AM labs Elevated blood glucose f/u A1C (not done on weekend by lab) ACHS Monitor Prophylactic Measure NPO diet Protonix 40 mg IV daily SCDs Discussed with Dr. Birch
[2017-07-20 08:49] LABS: BASO % 0.2 % (0.0-2.0); EOS # 0.1 K/uL (0.0-0.7); EOS % 1.6 % (0.0-4.0); HEMOGLOBIN 15.5 g/dL (12.0-18.0); LYMPH # 1.6 K/uL (1.0-4.3); LYMPH % 18.7 % (20.0-40.0); MEAN CORPUSCULAR HEMOGLOBIN 28.1 pg (27.0-31.0); MEAN CORPUSCULAR HGB CONC 33.9 g/dL (33.0-37.0); MONO # 0.8 K/uL (0.0-0.8); MONO % 9.7 % (0.0-10.0); NEUT # 5.8 K/uL (1.8-7.0); NEUT % 69.8 % (50.0-75.0); NRBC % 0.1 % (0.0-2.0); RBC 5.5 Mil/uL (4.40-5.90); RED CELL DISTRIBUTION WIDTH 12.7 % (11.5-14.5); WHITE BLOOD COUNT 8.3 K/uL (4.8-10.8)
--- NOTE | 2017-07-20 08:51 | CP.PCM.PN ---
Subjective - Date & Time of Evaluation Date of Evaluation: 07/20/17 Time of Evaluation: 08:48 - Subjective Subjective: General Surgery Progress Note For Dr. Brennan Pt seen and examined this AM at bedside no acute events overnight. He reports that he still has abdominal pain however it is somewhat improved since yesterday. he denies fevers, chills chest pain however he does complain about his NGT. Objective - Vital Signs/Intake and Output Vital Signs (last 24 hours): Temp Pulse Resp BP Pulse Ox 99.0 F 79 20 132/78 95 07/19/17 23:40 07/20/17 04:00 07/19/17 23:40 07/19/17 23:40 07/19/17 23:40 Intake and Output: 07/20/17 07/20/17 06:59 18:59 Intake Total 3250 Output Total 2775 Balance 475 - Medications Medications: Current Medications Lactated Ringer's (Lactated Ringer's) 1,000 mls @ 250 mls/hr IV .Q4H [facility] Last Admin: 07/20/17 06:35 Dose: 250 mls/hr Morphine Sulfate (Morphine) 4 mg IVP Q4 PRN PRN Reason: Pain, severe (8-10) Last Admin: 07/19/17 09:04 Dose: 4 mg Ondansetron HCl (Zofran Inj) 4 mg IVP Q6H PRN PRN Reason: Nausea/Vomiting Pantoprazole Sodium (Protonix Inj) 40 mg IVP DAILY [facility] Last Admin: 07/19/17 09:48 Dose: 40 mg - Labs Labs: 07/19/17 02:54 07/19/17 02:54 PT 11.0 SECONDS (9.7-12.2) 07/19/17 02:54 INR 1.0 07/19/17 02:54 APTT 30 SECONDS (21-34) 07/19/17 02:54 - Constitutional Appears: Non-toxic, No Acute Distress - Head Exam Head Exam: ATRAUMATIC, NORMOCEPHALIC - Eye Exam Eye Exam: EOMI - ENT Exam ENT Exam: Mucous Membranes Moist - Respiratory Exam Respiratory Exam: NORMAL BREATHING PATTERN - Cardiovascular Exam Cardiovascular Exam: +S1, +S2 - GI/Abdominal Exam GI & Abdominal Exam: Soft, Tenderness. absent: Distended (n ), Firm - Neurological Exam Neurological Exam: Alert, Awake - Psychiatric Exam Psychiatric exam: Normal Affect, Normal Mood - Skin Skin Exam: Dry, Intact Assessment and Plan - Assessment and Plan (Free Text) Assessment: NPO IVF Serial abdominal exams continue managment per medical team and GI team followup MRCP D/W Dr. Mika Clark PGY2
[2017-07-20 09:08] LABS: ALB/GLOB RATIO 1.3 (1.0-2.1); ALT/SGPT 25 U/L (21-72); AST/SGOT 19 U/L (17-59); BLOOD UREA NITROGEN 8 mg/dL (9-20); CALCIUM 8.7 mg/dl (8.6-10.4); GFR AFRICAN-AMERICAN > 60; GFR NON-AFRICAN AMERICAN > 60; HDL CHOLESTEROL 40 mg/dL (30-70); MAGNESIUM 1.7 mg/dL (1.6-2.3)
--- NOTE | 2017-07-20 09:09 | CP.PCM.PN ---
Subjective - Date & Time of Evaluation Date of Evaluation: 07/20/17 Time of Evaluation: 09:00 - Subjective Subjective: Patient was seen and examined by me There was about 200 cc of dark brown liquid in the suction canister/NGT He reported he feels much better this morning. No pain at rest. He still had tenderness on exam with palpation. Denied fevers, denied chills, denied shortness of breath, denied coughing. Yesterday had MRCP, pending the read at this time. Also pending repeat lipase The abdominal ultrasound had a normal CBD, no gall stones, no sonographic lilly sign. HgB and WBC are unchanged this morning. He remains NPO and on IVF Objective - Vital Signs/Intake and Output Vital Signs (last 24 hours): Temp Pulse Resp BP Pulse Ox 99.0 F 79 20 132/78 95 07/19/17 23:40 07/20/17 04:00 07/19/17 23:40 07/19/17 23:40 07/19/17 23:40 Intake and Output: 07/20/17 07/20/17 06:59 18:59 Intake Total 3250 Output Total 2775 Balance 475 - Medications Medications: Current Medications Lactated Ringer's (Lactated Ringer's) 1,000 mls @ 250 mls/hr IV .Q4H [facility] Last Admin: 07/20/17 06:35 Dose: 250 mls/hr Morphine Sulfate (Morphine) 4 mg IVP Q4 PRN PRN Reason: Pain, severe (8-10) Last Admin: 07/19/17 09:04 Dose: 4 mg Ondansetron HCl (Zofran Inj) 4 mg IVP Q6H PRN PRN Reason: Nausea/Vomiting Pantoprazole Sodium (Protonix Inj) 40 mg IVP DAILY [facility] Last Admin: 07/19/17 09:48 Dose: 40 mg - Labs Labs: 07/20/17 08:43 07/19/17 02:54 PT 11.0 SECONDS (9.7-12.2) 07/19/17 02:54 INR 1.0 07/19/17 02:54 APTT 30 SECONDS (21-34) 07/19/17 02:54 - Head Exam Head Exam: NORMAL INSPECTION, NORMOCEPHALIC - Eye Exam Eye Exam: EOMI, Normal appearance - ENT Exam Additional comments: NGT at this time. 200 cc of dark brown color liquid - Respiratory Exam Respiratory Exam: Clear to Ausculation Bilateral, NORMAL BREATHING PATTERN - Cardiovascular Exam Cardiovascular Exam: REGULAR RHYTHM - GI/Abdominal Exam GI & Abdominal Exam: Soft, Tenderness. absent: Distended, Firm, Guarding, Rigid Additional comments: No guarding, no rebound There is tenderness epigastric area with moderate palpation - Neurological Exam Neurological Exam: Alert, Awake, Oriented x3 Neuro motor strength exam: Left Upper Extremity: 5, Right Upper Extremity: 5 - Psychiatric Exam Psychiatric exam: Normal Affect, Normal Mood - Skin Skin Exam: Normal Color, Warm Assessment and Plan - Assessment and Plan (Free Text) Assessment: Pancreatitis, gastric lumen dilated with fluid on CT 07/20: Currently he now has NGT, he feels much better. No pain at rest. Pending MRCP results Continue IVF, continue pain medication control Not immediately clear etiology, he denies alcohol, the UDS was negative, the LFTs are not elevated, no elevated lipids. The U/S and CT scan did not suggest stones and CBD was normal. Lipase levels [address] CT Abdomen/pelvis shows heterogeneous edematous pancreatic parenchyma with surrounding fluid. Findings supportive of pancreatitis. Lipid level: Cholesterol 192, LDL 129, HDL 46, Trigl 129 Dr. Coleman, GI information security consultant, help appreciated Dr. Brennan, knowledge management consultant, help appreciated Morphine 4 mg IV Q4 prn severe pain Lactated Ringers @250cc/hr Zofran 4 mg Q6 prn Ileus 07/20: Continue NPO, NGT to low intermittent suctioning. IVF CT Abdomen/pelvis shows heterogeneous edematous pancreatic parenchyma with surrounding fluid. Findings supportive of pancreatitis. Gastric lumen dilated with large amount of ingested fluid. May be secondary ileus from adjacent pancreatitis. NGT placed Dr. Coleman, GI information security consultant, help appreciated Dr. Brennan, knowledge management consultant, help appreciated AMS 07/20: Answering all questions appropriately Resolved - pt found slumped non-communicative due to pain CT Head/Angio: negative for acute bleed. Troponin negative x1 EKG: NSR @ 75bpm, NO acute st - t wave changes Hypokalemia 3.1 on admission, repleted f/u AM labs Elevated blood glucose f/u A1C (not done on weekend by lab) ACHS Monitor Prophylactic Measure NPO diet Protonix 40 mg IV daily SCDs
[2017-07-20 09:18] LABS: LDL CHOLESTEROL 117 mg/dL (0-129); LIPASE 4064 U/L (23-300)
[2017-07-20] MEDS ORDERED: Magnesium Sulfate 1 gm in D5W 1 GM/100 ML BAG IVPB ONE (09:59)
--- NOTE | 2017-07-20 11:40 | CP.PCM.PN ---
Subjective - Date & Time of Evaluation Date of Evaluation: 07/20/17 Time of Evaluation: 11:20 - Subjective Subjective: F/O pancreatitis. Reports less abdom pain. reports left post hip pain. NG tube in place. Deneies fever, chills, MCINTOSH, cough, RB, melena, vomiting, hematuria, hemoptysis Objective - Vital Signs/Intake and Output Vital Signs (last 24 hours): Temp Pulse Resp BP Pulse Ox 98.7 F 84 20 134/79 96 07/20/17 08:00 07/20/17 08:00 07/20/17 08:00 07/20/17 08:00 07/20/17 08:00 Intake and Output: 07/20/17 07/20/17 06:59 18:59 Intake Total 3250 Output Total 2775 Balance 475 - Medications Medications: Current Medications Lactated Ringer's (Lactated Ringer's) 1,000 mls @ 250 mls/hr IV .Q4H [facility] Last Admin: 07/20/17 10:41 Dose: 250 mls/hr Potassium Chloride (Potassium Chloride 20 Meq/100 Ml) 20 meq in 100 mls @ 50 mls/hr IVPB ONCE ONE Stop: 07/20/17 12:29 Last Admin: 07/20/17 10:38 Dose: 50 mls/hr Morphine Sulfate (Morphine) 4 mg IVP Q4 PRN PRN Reason: Pain, severe (8-10) Last Admin: 07/19/17 09:04 Dose: 4 mg Ondansetron HCl (Zofran Inj) 4 mg IVP Q6H PRN PRN Reason: Nausea/Vomiting Pantoprazole Sodium (Protonix Inj) 40 mg IVP DAILY [facility] Last Admin: 07/20/17 11:17 Dose: 40 mg - Labs Labs: 07/20/17 08:43 07/20/17 08:43 PT 11.0 SECONDS (9.7-12.2) 07/19/17 02:54 INR 1.0 07/19/17 02:54 APTT 30 SECONDS (21-34) 07/19/17 02:54 - Constitutional Appears: Non-toxic - Neck Exam Neck Exam: absent: Tenderness - Respiratory Exam Respiratory Exam: Clear to Ausculation Bilateral - Cardiovascular Exam Cardiovascular Exam: RRR - GI/Abdominal Exam GI & Abdominal Exam: Soft, Normal Bowel Sounds. absent: Distended, Guarding, Tenderness, Mass, Rebound - Extremities Exam Extremities Exam: absent: Pedal Edema - Neurological Exam Neurological Exam: Alert, Oriented x3 Assessment and Plan (1) Dehydration Assessment & Plan: Improving Status: Acute (2) Hyperglycemia Status: Acute (3) Abdominal pain Assessment & Plan: Pancreatitis, distended stomach/ileus Status: Acute (4) Acute pancreatitis Assessment & Plan: Clinically improving. Less abdom pain. LFTs nl. Lipase improving. Unclear etiology: Denies alcohol, lipids. LFTs nl. No ductal dilatation. Consider panc divisum, auto-immune. Pt has an episode of pancreatitis in the past,. REC: IV fluids, Check KUB for stomach/sm bowel loops, follow labs, TONY. I have been trying to get MRCP results. Called Radiology and CT. I was told was read, but report is not available. Status: Acute
[2017-07-21] MEDS: Lactated Ringer's 1,000 ML IV SCH ×4 (01:59→11:03)
[2017-07-21 07:22] LABS: BASO % 0.4 % (0.0-2.0); EOS # 0.2 K/uL (0.0-0.7); EOS % 1.9 % (0.0-4.0); HEMOGLOBIN 15.9 g/dL (12.0-18.0); LYMPH # 1.7 K/uL (1.0-4.3); LYMPH % 18.6 % (20.0-40.0); MEAN CELL VOLUME 82.8 fL (80.0-94.0); MEAN CORPUSCULAR HEMOGLOBIN 28.6 pg (27.0-31.0); MEAN CORPUSCULAR HGB CONC 34.5 g/dL (33.0-37.0); MEAN PLATELET VOLUME 9.8 fL (7.2-11.7); MONO % 11.2 % (0.0-10.0); NEUT # 6.2 K/uL (1.8-7.0); NEUT % 67.9 % (50.0-75.0); NRBC % 0.1 % (0.0-2.0); RBC 5.55 Mil/uL (4.40-5.90); RED CELL DISTRIBUTION WIDTH 12.8 % (11.5-14.5); WHITE BLOOD COUNT 9.1 K/uL (4.8-10.8)
[2017-07-21 08:20] LABS: ALB/GLOB RATIO 1.3 (1.0-2.1); ALT/SGPT 20 U/L (21-72); AST/SGOT 17 U/L (17-59); BLOOD UREA NITROGEN 10 mg/dL (9-20); CALCIUM 8.8 mg/dl (8.6-10.4); GFR AFRICAN-AMERICAN > 60; GFR NON-AFRICAN AMERICAN > 60; LIPASE 526 U/L (23-300); MAGNESIUM 1.7 mg/dL (1.6-2.3)
[2017-07-21] MEDS ORDERED: Influenza Vaccine 60 mcg/0.5 mL SYR (4YR UP) IM ONE (10:00)
--- NOTE | 2017-07-21 12:43 | MRI ---
MRCP Indication: Pancreatitis, unclear etiology Technique: Multiplanar, multisequence MR images of the abdomen were obtained, including heavily T2 weighted MRCP images of the biliary system. Rotating maximum intensity projection images of the biliary system were generated. A total of 817 images were submitted for review. Comparison: CT of the chest, abdomen and pelvis performed 07/19/17 Findings: Markedly limited study due to motion and misregistration artifact. Nonspecific bibasilar consolidations, possibly atelectasis or pneumonia. The liver appears grossly unremarkable on this noncontrast examination. The gallbladder appears unremarkable. There is no intra or extrahepatic biliary ductal dilatation identified. The pancreatic duct does not appear dilated. No filling defects identified in the common bile duct or pancreatic duct. Heterogeneous pancreatic parenchyma. Peripancreatic inflammatory changes and peripancreatic fluid consistent with provided history of acute pancreatitis. Left upper quadrant fluid is noted adjacent to the pancreatic tail as well as within the para renal space. The included portions of the noncontrast adrenal glands, kidneys, and spleen appear otherwise grossly unremarkable. No bulky abdominal lymphadenopathy is seen. Nonspecific probable gastric wall thickening may be exaggerated by under distension; correlate clinically. No acute osseous abnormality is detected. Impression: Limited study as above. Heterogeneous appearance of the pancreatic parenchyma with peripancreatic inflammatory changes and fluid evident. Fluid also noted within the left upper quadrant adjacent to the pancreatic tail of tear renal space. Appearance consistent with acute pancreatitis. Correlate clinically. Nonspecific basilar consolidations, possibly atelectasis or pneumonia. Nonspecific probable gastric wall thickening may be exaggerated by under distension; correlate clinically. Preliminary impression was provided by virtual radiologic.
--- NOTE | 2017-07-21 14:28 | RAD ---
HISTORY: ileus COMPARISON: No prior. FINDINGS: Distal tip NGT is seen overlying the left upper quadrant of the abdomen. BOWEL: No gross free intraperitoneal air. Nonobstructive bowel gas pattern. BONES: Normal. OTHER FINDINGS: None. IMPRESSION: No evidence of free intraperitoneal air. No evidence of acute mechanical bowel obstruction.
--- NOTE | 2017-07-21 16:06 | CP.PCM.PN ---
Subjective - Date & Time of Evaluation Date of Evaluation: 07/21/17 Time of Evaluation: 16:03 - Subjective Subjective: General Surgery Progress Note for Dr. Brennan This pt was seen and examined this AM at bedside. He reports that his abdominal pain is improving. Objective - Vital Signs/Intake and Output Vital Signs (last 24 hours): Temp Pulse Resp BP Pulse Ox 97.5 F L 90 20 147/84 95 07/20/17 23:45 07/21/17 12:10 07/20/17 23:45 07/20/17 23:45 07/20/17 23:45 Intake and Output: 07/21/17 07/21/17 06:59 18:59 Intake Total 6000 Output Total 2300 Balance 3700 - Medications Medications: Current Medications Lactated Ringer's (Lactated Ringer's) 1,000 mls @ 250 mls/hr IV .Q4H [facility] Last Admin: 07/21/17 11:03 Dose: 250 mls/hr Morphine Sulfate (Morphine) 4 mg IVP Q4 PRN PRN Reason: Pain, severe (8-10) Last Admin: 07/19/17 09:04 Dose: 4 mg Ondansetron HCl (Zofran Inj) 4 mg IVP Q6H PRN PRN Reason: Nausea/Vomiting Pantoprazole Sodium (Protonix Inj) 40 mg IVP DAILY [facility] Last Admin: 07/21/17 10:52 Dose: 40 mg - Labs Labs: 07/21/17 06:47 07/21/17 06:47 PT 11.0 SECONDS (9.7-12.2) 07/19/17 02:54 INR 1.0 07/19/17 02:54 APTT 30 SECONDS (21-34) 07/19/17 02:54 - Constitutional Appears: Non-toxic, No Acute Distress - Head Exam Head Exam: ATRAUMATIC, NORMOCEPHALIC - Eye Exam Eye Exam: EOMI, Normal appearance - ENT Exam ENT Exam: Mucous Membranes Moist - Respiratory Exam Respiratory Exam: NORMAL BREATHING PATTERN - Cardiovascular Exam Cardiovascular Exam: +S1, +S2 - GI/Abdominal Exam GI & Abdominal Exam: Soft. absent: Rigid, Tenderness - Neurological Exam Neurological Exam: Alert, Awake - Psychiatric Exam Psychiatric exam: Normal Affect - Skin Skin Exam: Dry Assessment and Plan - Assessment and Plan (Free Text) Assessment: 47M with pancreatitis no surgical managment at this time ufrida from gallbladder origin d/w Dr. Mika Clark [phone]
--- NOTE | 2017-07-21 16:07 | CP.PCM.PN ---
Subjective - Date & Time of Evaluation Date of Evaluation: 07/21/17 Time of Evaluation: 16:05 - Subjective Subjective: Less abdomoinal pain. Denies N/V NGT in place. Still NPO Labs improving. TONY neg KUB- neg Objective - Vital Signs/Intake and Output Vital Signs (last 24 hours): Temp Pulse Resp BP Pulse Ox 97.5 F L 90 20 147/84 95 07/20/17 23:45 07/21/17 12:10 07/20/17 23:45 07/20/17 23:45 07/20/17 23:45 Intake and Output: 07/21/17 07/21/17 06:59 18:59 Intake Total 6000 Output Total 2300 Balance 3700 - Medications Medications: Current Medications Lactated Ringer's (Lactated Ringer's) 1,000 mls @ 250 mls/hr IV .Q4H [facility] Last Admin: 07/21/17 11:03 Dose: 250 mls/hr Morphine Sulfate (Morphine) 4 mg IVP Q4 PRN PRN Reason: Pain, severe (8-10) Last Admin: 07/19/17 09:04 Dose: 4 mg Ondansetron HCl (Zofran Inj) 4 mg IVP Q6H PRN PRN Reason: Nausea/Vomiting Pantoprazole Sodium (Protonix Inj) 40 mg IVP DAILY [facility] Last Admin: 07/21/17 10:52 Dose: 40 mg - Labs Labs: 07/21/17 06:47 07/21/17 06:47 PT 11.0 SECONDS (9.7-12.2) 07/19/17 02:54 INR 1.0 07/19/17 02:54 APTT 30 SECONDS (21-34) 07/19/17 02:54 - Constitutional Appears: Well, No Acute Distress - Head Exam Head Exam: NORMOCEPHALIC - Neck Exam Neck Exam: Normal Inspection - Respiratory Exam Respiratory Exam: NORMAL BREATHING PATTERN - Cardiovascular Exam Cardiovascular Exam: REGULAR RHYTHM - GI/Abdominal Exam GI & Abdominal Exam: Soft, Normal Bowel Sounds. absent: Distended, Tenderness, Mass, Rebound Assessment and Plan - Assessment and Plan (Free Text) Assessment: Acute Pancreatitis- undetermined etiology. No Panc Divisum or gallstones on MRCP Clinically improving Rec: Feed patient. Check IgG4
--- NOTE | 2017-07-21 19:33 | CP.PCM.PN ---
Subjective - Date & Time of Evaluation Date of Evaluation: 07/21/17 Time of Evaluation: 07:31 - Subjective Subjective: Patient seen and examined at bedside. Per nursing no acute events occurred overnight . The patient reports feeling better from yesterday. The patient does report some lower lumbar pain and minor flank pain today. The patient denies any chest pain, shortness of breath, fevers, chills, changes in vision, nausea, vomiting, or any other complaints. Objective - Vital Signs/Intake and Output Vital Signs (last 24 hours): Temp Pulse Resp BP Pulse Ox 97.5 F L 90 20 147/84 95 07/20/17 23:45 07/21/17 12:10 07/20/17 23:45 07/20/17 23:45 07/20/17 23:45 Intake and Output: 07/21/17 07/22/17 18:59 06:59 Intake Total 1999 Balance 1999 - Medications Medications: Current Medications Lactated Ringer's (Lactated Ringer's) 1,000 mls @ 250 mls/hr IV .Q4H [facility] Last Admin: 07/21/17 11:03 Dose: 250 mls/hr Morphine Sulfate (Morphine) 4 mg IVP Q4 PRN PRN Reason: Pain, severe (8-10) Last Admin: 07/19/17 09:04 Dose: 4 mg Ondansetron HCl (Zofran Inj) 4 mg IVP Q6H PRN PRN Reason: Nausea/Vomiting Pantoprazole Sodium (Protonix Inj) 40 mg IVP DAILY [facility] Last Admin: 07/21/17 10:52 Dose: 40 mg - Labs Labs: 07/21/17 06:47 07/21/17 06:47 PT 11.0 SECONDS (9.7-12.2) 07/19/17 02:54 INR 1.0 07/19/17 02:54 APTT 30 SECONDS (21-34) 07/19/17 02:54 - Head Exam Head Exam: ATRAUMATIC, NORMAL INSPECTION, NORMOCEPHALIC - Eye Exam Eye Exam: EOMI, Normal appearance, PERRL. absent: Periorbital tenderness Pupil Exam: NORMAL ACCOMODATION, PERRL. absent: Irregular, Unequal - ENT Exam ENT Exam: Mucous Membranes Moist, Normal Oropharynx - Neck Exam Neck Exam: Normal Inspection. absent: Lymphadenopathy, Thyromegaly - Respiratory Exam Respiratory Exam: Clear to Ausculation Bilateral, NORMAL BREATHING PATTERN. absent: Chest Wall Tenderness, Prolonged Expiratory Phase, Respiratory Distress - Cardiovascular Exam Cardiovascular Exam: REGULAR RHYTHM, RRR, +S1, +S2. absent: Rubs - GI/Abdominal Exam GI & Abdominal Exam: Soft, Normal Bowel Sounds - Extremities Exam Extremities Exam: Full ROM, Normal Inspection. absent: Pedal Edema - Back Exam Back Exam: NORMAL INSPECTION. absent: CVA tenderness (L), CVA tenderness (R), paraspinal tenderness - Neurological Exam Neurological Exam: Alert, Awake, CN II-XII Intact, Normal Gait, Oriented x3 - Psychiatric Exam Psychiatric exam: Normal Affect, Normal Mood - Skin Skin Exam: Dry, Intact, Normal Color, Warm Assessment and Plan - Assessment and Plan (Free Text) Plan: Pancreatitis, gastric lumen dilated with fluid on CT After speaking with Attending Dr. Roe, patient did admit to a previous drinking past. The patient also [place] Lipase levels [id number] CT Abdomen/pelvis shows heterogeneous edematous pancreatic parenchyma with surrounding fluid. Findings supportive of pancreatitis. MRCP:limitred study, nonspecific bibasilar changes, heterogeneous appearance pancreatic parenchyma with parish-pancreatic inflammation changes, fluid in the left upper quadrant, consistent with acute pancreatitis Lipid level: Cholesterol 192, LDL 129, HDL 46, Trigl 129 Dr. Coleman, GI applications sales consultant, help appreciated Dr. Brennan, [employer] consultant, help appreciated Continue Morphine 4 mg IV Q4 prn severe pain Continue Lactated Ringers @250cc/hr Continue Zofran 4 mg Q6 prn Clear liquid diet to begin 07/21/17 for dinner. Will monitor. Ileus Continue IV fluids CT Abdomen/pelvis shows heterogeneous edematous pancreatic parenchyma with surrounding fluid. Findings supportive of pancreatitis. Gastric lumen dilated with large amount of ingested fluid. May be secondary ileus from adjacent pancreatitis. NGT placed Dr. Coleman, GI applications sales consultant, help appreciated Dr. Brennan, [employer] consultant, help appreciated AMS 07/21: Answering all questions appropriately Resolved - pt found slumped non-communicative due to pain CT Head/Angio: negative for acute bleed. Troponin negative x1 EKG: NSR @ 75bpm, NO acute st - t wave changes Hypokalemia 3.1 on admission, repleted 3.7 today. Will monitor with serial CMP's Elevated blood glucose A1C:6.8%. Patient is currently transitioning to clear liquid diet. Will hold off on start oral diabetic medications at this time. Will monitor how he tolerates diet. ACHS Monitor Prophylactic Measure Protonix 40 mg IV daily SCDs
--- NOTE | 2017-07-21 22:57 | CARD ---
APPROVED REPORT EKG Measurement Heart [id number] <Conclusion> Normal sinus rhythm Normal ECG
[2017-07-22] MEDS: Lactated Ringer's 1,000 ML IV SCH ×5 (00:56→23:23)
[2017-07-22 07:25] LABS: BASO % 0.2 % (0.0-2.0); EOS # 0.3 K/uL (0.0-0.7); EOS % 4.2 % (0.0-4.0); HEMOGLOBIN 14.6 g/dL (12.0-18.0); LYMPH # 1.8 K/uL (1.0-4.3); MEAN CELL VOLUME 83.6 fL (80.0-94.0); MEAN CORPUSCULAR HEMOGLOBIN 28.9 pg (27.0-31.0); MEAN CORPUSCULAR HGB CONC 34.6 g/dL (33.0-37.0); MEAN PLATELET VOLUME 9.6 fL (7.2-11.7); MONO # 0.8 K/uL (0.0-0.8); MONO % 11.6 % (0.0-10.0); NEUT # 4.2 K/uL (1.8-7.0); NRBC % 0.1 % (0.0-2.0); RBC 5.06 Mil/uL (4.40-5.90); RED CELL DISTRIBUTION WIDTH 12.7 % (11.5-14.5); WHITE BLOOD COUNT 7.1 K/uL (4.8-10.8)
[2017-07-22 07:42] LABS: ALB/GLOB RATIO 1.2 (1.0-2.1); ALBUMIN 3.5 g/dL (3.5-5.0); ALT/SGPT 18 U/L (21-72); AST/SGOT 17 U/L (17-59); BLOOD UREA NITROGEN 12 mg/dL (9-20); CALCIUM 8.4 mg/dl (8.6-10.4); GFR AFRICAN-AMERICAN > 60; GFR NON-AFRICAN AMERICAN > 60; MAGNESIUM 1.8 mg/dL (1.6-2.3)
--- NOTE | 2017-07-22 13:23 | CP.PCM.PN ---
Subjective - Date & Time of Evaluation Date of Evaluation: 07/22/17 Time of Evaluation: 13:00 - Subjective Subjective: F/U pancreatitis Feeling better No vomiting, abdom pain, CP, SOB, cough, hemoptysis, REports post left hip pain Objective - Vital Signs/Intake and Output Vital Signs (last 24 hours): Temp Pulse Resp BP Pulse Ox 98.5 F 75 20 127/81 96 07/22/17 07:00 07/22/17 07:00 07/22/17 07:00 07/22/17 07:00 07/22/17 07:00 Intake and Output: 07/22/17 07/22/17 06:59 18:59 Intake Total 2150 Output Total 850 Balance 2150 -850 - Medications Medications: Current Medications Ibuprofen (Motrin Tab) 600 mg PO TID PRN PRN Reason: Pain, moderate (4-7) Morphine Sulfate (Morphine) 4 mg IVP Q4 PRN PRN Reason: Pain, severe (8-10) Last Admin: 07/19/17 09:04 Dose: 4 mg Ondansetron HCl (Zofran Inj) 4 mg IVP Q6H PRN PRN Reason: Nausea/Vomiting Pantoprazole Sodium (Protonix Inj) 40 mg IVP DAILY JOHNATHAN Last Admin: 07/22/17 10:44 Dose: 40 mg - Labs Labs: 07/22/17 07:11 07/22/17 07:11 PT 11.0 SECONDS (9.7-12.2) 07/19/17 02:54 INR 1.0 07/19/17 02:54 APTT 30 SECONDS (21-34) 07/19/17 02:54 - Constitutional Appears: Well - Neck Exam Neck Exam: absent: Tenderness - Respiratory Exam Respiratory Exam: Clear to Ausculation Bilateral - Cardiovascular Exam Cardiovascular Exam: RRR - GI/Abdominal Exam GI & Abdominal Exam: Soft, Normal Bowel Sounds. absent: Distended, Guarding, Tenderness - Extremities Exam Extremities Exam: absent: Pedal Edema - Neurological Exam Neurological Exam: Alert, Oriented x3 Assessment and Plan (1) Hyperglycemia Status: Acute (2) Abdominal pain Status: Acute (3) Acute pancreatitis Assessment & Plan: improving. Unknown etiology. CHeck IgG4 level On liquids- advance diet. No alcohol Status: Acute
--- NOTE | 2017-07-22 15:06 | CP.PCM.PN ---
Subjective - Date & Time of Evaluation Date of Evaluation: 07/22/17 Time of Evaluation: 06:06 - Subjective Subjective: Patient seen and examined at bedside. Per nursing no acute events occurred overnight . The patient reports feeling better from yesterday. The patient does continue to report lower lumbar pain and minor flank pain today. The patient denies any chest pain, shortness of breath, fevers, chills, changes in vision, nausea, vomiting, or any other complaints. Objective - Vital Signs/Intake and Output Vital Signs (last 24 hours): Temp Pulse Resp BP Pulse Ox 98.5 F 75 20 127/81 96 07/22/17 07:00 07/22/17 07:00 07/22/17 07:00 07/22/17 07:00 07/22/17 07:00 Intake and Output: 07/22/17 07/22/17 06:59 18:59 Intake Total 2150 Output Total 850 Balance 2150 -850 - Medications Medications: Current Medications Ibuprofen (Motrin Tab) 600 mg PO TID PRN PRN Reason: Pain, moderate (4-7) Morphine Sulfate (Morphine) 4 mg IVP Q4 PRN PRN Reason: Pain, severe (8-10) Last Admin: 07/19/17 09:04 Dose: 4 mg Ondansetron HCl (Zofran Inj) 4 mg IVP Q6H PRN PRN Reason: Nausea/Vomiting Pantoprazole Sodium (Protonix Inj) 40 mg IVP DAILY JOHNATHAN Last Admin: 07/22/17 10:44 Dose: 40 mg - Labs Labs: 07/22/17 07:11 07/22/17 07:11 PT 11.0 SECONDS (9.7-12.2) 07/19/17 02:54 INR 1.0 07/19/17 02:54 APTT 30 SECONDS (21-34) 07/19/17 02:54 - Head Exam Head Exam: ATRAUMATIC, NORMAL INSPECTION, NORMOCEPHALIC - Eye Exam Eye Exam: EOMI, Normal appearance, PERRL. absent: Periorbital tenderness Pupil Exam: NORMAL ACCOMODATION, PERRL. absent: Irregular, Unequal - ENT Exam ENT Exam: Mucous Membranes Moist, Normal Exam, Normal Oropharynx - Neck Exam Neck Exam: Normal Inspection. absent: Lymphadenopathy, Thyromegaly - Respiratory Exam Respiratory Exam: Clear to Ausculation Bilateral, NORMAL BREATHING PATTERN. absent: Chest Wall Tenderness, Prolonged Expiratory Phase, Respiratory Distress - Cardiovascular Exam Cardiovascular Exam: REGULAR RHYTHM, +S1, +S2. absent: Gallop, Rubs - GI/Abdominal Exam GI & Abdominal Exam: Soft, Normal Bowel Sounds. absent: Rigid, Hyperactive Bowel Sounds - Extremities Exam Extremities Exam: Full ROM, Normal Inspection. absent: Joint Swelling, Pedal Edema, Tenderness - Back Exam Back Exam: NORMAL INSPECTION. absent: CVA tenderness (L), CVA tenderness (R), paraspinal tenderness - Neurological Exam Neurological Exam: Alert, Awake, CN II-XII Intact, Oriented x3 - Psychiatric Exam Psychiatric exam: Normal Affect, Normal Mood - Skin Skin Exam: Dry, Intact, Normal Color Assessment and Plan - Assessment and Plan (Free Text) Plan: Pancreatitis, gastric lumen dilated with fluid on CT After speaking with Attending Dr. Roe, patient did admit to a previous drinking past. The patient also reported a previous incident [place]. Lip[place] levels [id number] CT Abdomen/pelvis shows heterogeneous edematous pancreatic parenchyma with surrounding fluid. Findings supportive of pancreatitis. MRCP:limitred study, nonspecific bibasilar changes, heterogeneous appearance pancreatic parenchyma with parish-pancreatic inflammation changes, fluid in the left upper quadrant, consistent with acute pancreatitis Lipid level: Cholesterol 192, LDL 129, HDL 46, Trigl 129 Dr. Coleman, GI contract consultant, help appreciated Dr. Brennan, investment consultant, help appreciated Continue Morphine 4 mg IV Q4 prn severe pain Continue Lactated Ringers @250cc/hr Continue Zofran 4 mg Q6 prn Tolerating liquid diet. Will continue to advance as tolerated. Ileus Continue IV fluids CT Abdomen/pelvis shows heterogeneous edematous pancreatic parenchyma with surrounding fluid. Findings supportive of pancreatitis. Gastric lumen dilated with large amount of ingested fluid. May be secondary ileus from adjacent pancreatitis. NGT placed. Removed at this time. Dr. Coleman, GI contract consultant, help appreciated Dr. Brennan, investment consultant, help appreciated Lower back pain Patient reports lower back pain Ibuprofen 600mg Q6 TID PRN for moderate pain. AMS 07/21: Answering all questions appropriately Resolved - pt found slumped non-communicative due to pain CT Head/Angio: negative for acute bleed. Troponin negative x1 EKG: NSR @ 75bpm, NO acute st - t wave changes Hypokalemia (Resolved) 3.1 on admission, repleted 3.9 today. Will monitor with serial CMP's Elevated blood glucose A1C:6.8%. Patient is currently transitioning to clear liquid diet. Will hold off on start oral diabetic medications at this time. Will monitor how he tolerates diet. ACHS Monitor Prophylactic Measure Protonix 40 mg IV daily SCDs
[2017-07-23 00:50] VITALS: RESP 20
[2017-07-23 07:09] LABS: ALB/GLOB RATIO 1.2 (1.0-2.1); ALBUMIN 3.8 g/dL (3.5-5.0); ALT/SGPT 27 U/L (21-72); AST/SGOT 16 U/L (17-59); BLOOD UREA NITROGEN 10 mg/dL (9-20); GFR AFRICAN-AMERICAN > 60; GFR NON-AFRICAN AMERICAN > 60; MAGNESIUM 1.8 mg/dL (1.6-2.3)
[2017-07-23 07:38] LABS: BASO % 0.4 % (0.0-2.0); EOS # 0.3 K/uL (0.0-0.7); EOS % 5.2 % (0.0-4.0); HEMOGLOBIN 14.8 g/dL (12.0-18.0); LYMPH # 1.7 K/uL (1.0-4.3); LYMPH % 28.8 % (20.0-40.0); MEAN CELL VOLUME 82.6 fL (80.0-94.0); MEAN CORPUSCULAR HEMOGLOBIN 29.1 pg (27.0-31.0); MEAN CORPUSCULAR HGB CONC 35.2 g/dL (33.0-37.0); MEAN PLATELET VOLUME 9.8 fL (7.2-11.7); MONO # 0.6 K/uL (0.0-0.8); MONO % 10.1 % (0.0-10.0); NEUT # 3.3 K/uL (1.8-7.0); NEUT % 55.5 % (50.0-75.0); NRBC % 0.1 % (0.0-2.0); RBC 5.09 Mil/uL (4.40-5.90); RED CELL DISTRIBUTION WIDTH 12.5 % (11.5-14.5)
--- NOTE | 2017-07-23 13:31 | CP.PCM.DIS ---
<KyleighWardn - Last Filed: 07/23/17 17:33> Provider - Provider Date of Admission: 07/19/17 05:10 Attending physician: Giovanni Birch DO Primary care physician: PMD: None Consults: GI:Dr. Valentine Surgery: Dr. Brennan Time Spent in preparation of Discharge (in minutes): 45 Hospital Course - Lab Results Lab Results: Most Recent Lab Values WBC 6.0 K/uL (4.8-10.8) 07/23/17 06:43 RBC 5.09 Mil/uL (4.40-5.90) 07/23/17 06:43 Hgb 14.8 g/dL (12.0-18.0) 07/23/17 06:43 Hct 42.0 % (35.0-51.0) 07/23/17 06:43 MCV 82.6 fL (80.0-94.0) 07/23/17 06:43 MCH 29.1 pg (27.0-31.0) 07/23/17 06:43 MCHC 35.2 g/dL (33.0-37.0) 07/23/17 06:43 RDW 12.5 % (11.5-14.5) 07/23/17 06:43 Plt Count 201 K/uL (130-400) 07/23/17 06:43 MPV 9.8 fL (7.2-11.7) 07/23/17 06:43 Neut % (Auto) 55.5 % (50.0-75.0) 07/23/17 06:43 Lymph % (Auto) 28.8 % (20.0-40.0) 07/23/17 06:43 [place] % (Auto) 10.1 % (0.0-10.0) H 07/23/17 06:43 Eos % (Auto) 5.2 % (0.0-4.0) H 07/23/17 06:43 Baso % (Auto) 0.4 % (0.0-2.0) 07/23/17 06:43 Neut # (Auto) 3.3 K/uL (1.8-7.0) 07/23/17 06:43 Lymph # (Auto) 1.7 K/uL (1.0-4.3) 07/23/17 06:43 [place] # (Auto) 0.6 K/uL (0.0-0.8) 07/23/17 06:43 Eos # (Auto) 0.3 K/uL (0.0-0.7) 07/23/17 06:43 Baso # (Auto) 0.0 K/uL (0.0-0.2) 07/23/17 06:43 PT 11.0 SECONDS (9.7-12.2) 07/19/17 02:54 INR 1.0 07/19/17 02:54 APTT 30 SECONDS (21-34) 07/19/17 02:54 pO2 17 mm/Hg (30-55) L 07/19/17 03:00 VBG pH 7.34 (7.32-7.43) 07/19/17 03:00 VBG pCO2 56 mmHg (40-60) 07/19/17 03:00 VBG HCO3 25.3 mmol/L 07/19/17 03:00 VBG Total CO2 31.9 mmol/L (22-28) H 07/19/17 03:00 VBG O2 Sat (Calc) 25.9 % (40-65) L 07/19/17 03:00 VBG Base Excess 3.1 mmol/L (0.0-2.0) H 07/19/17 03:00 VBG Potassium 2.9 mmol/L (3.6-5.2) L 07/19/17 03:00 Sodium 138.0 mmol/l (132-148) 07/19/17 03:00 Chloride 100.0 mmol/L (98-107) 07/19/17 03:00 Glucose 172 mg/dl (75-110) H 07/19/17 03:00 Lactate 1.7 mmol/L (0.7-2.1) 07/19/17 03:00 Crit Value Called To Dr pool 07/19/17 03:00 Crit Value Called By Radha buenrostro rt 07/19/17 03:00 Crit Value Read Back Y 07/19/17 03:00 Blood Gas Notified Time 305 07/19/17 03:00 Sodium 136 mmol/L (132-148) 07/23/17 06:43 Potassium 4.1 mmol/L (3.6-5.2) 07/23/17 06:43 Chloride 98 mmol/L (98-107) 07/23/17 06:43 Carbon Dioxide 28 mmol/L (22-30) 07/23/17 06:43 Anion Gap 15 (10-20) 07/23/17 06:43 BUN 10 mg/dL (9-20) 07/23/17 06:43 Creatinine 0.9 mg/dL (0.8-1.5) 07/23/17 06:43 Est GFR ( Amer) > 60 07/23/17 06:43 Est GFR (Non-Af Amer) > 60 07/23/17 06:43 POC Glucose (mg/dL) 115 mg/dL (65-110) H 07/23/17 11:19 Random Glucose 109 mg/dL (75-110) 07/23/17 06:43 Hemoglobin A1c 6.8 % (4.2-6.5) H 07/19/17 02:54 Calcium 9.0 mg/dl (8.6-10.4) 07/23/17 06:43 Phosphorus 4.8 mg/dL (2.5-4.5) H 07/23/17 06:43 Magnesium 1.8 mg/dL (1.6-2.3) 07/23/17 06:43 Total Bilirubin 0.6 mg/dL (0.2-1.3) 07/23/17 06:43 AST 16 U/L (17-59) L 07/23/17 06:43 ALT 27 U/L (21-72) 07/23/17 06:43 Alkaline Phosphatase 44 U/L (38-126) 07/23/17 06:43 Lactate Dehydrogenase 335 U/L (313-618) 07/21/17 06:47 Troponin I < 0.0120 ng/mL (0.00-0.120) 07/19/17 02:54 Total Protein 6.9 g/dL (6.3-8.3) 07/23/17 06:43 Albumin 3.8 g/dL (3.5-5.0) 07/23/17 06:43 Globulin 3.1 gm/dL (2.2-3.9) 07/23/17 06:43 Albumin/Globulin Ratio 1.2 (1.0-2.1) 07/23/17 06:43 Triglycerides 110 mg/dL (0-149) 07/20/17 08:43 Cholesterol 170 mg/dL (0-199) 07/20/17 08:43 LDL Cholesterol Direct 117 mg/dL (0-129) 07/20/17 08:43 HDL Cholesterol 40 mg/dL (30-70) 07/20/17 08:43 Lipase 526 U/L (23-300) H 07/21/17 06:47 Venous Blood Potassium 2.9 mmol/L (3.6-5.2) L 07/19/17 03:00 Urine Color Straw (YELLOW) 07/19/17 03:58 Urine Clarity Clear (Clear) 07/19/17 03:58 Urine pH 6.0 (5.0-8.0) 07/19/17 03:58 Ur Specific [place] 1.035 (1.003-1.030) H 07/19/17 03:58 Urine Protein Negative mg/dL (NEGATIVE) 07/19/17 03:58 Urine Glucose (UA) 2+ mg/dL (Normal) H 07/19/17 03:58 Urine Ketones Negative mg/dL (NEGATIVE) 07/19/17 03:58 Urine Blood Negative (NEGATIVE) 07/19/17 03:58 Urine Nitrate Negative (NEGATIVE) 07/19/17 03:58 Urine Bilirubin Negative (NEGATIVE) 07/19/17 03:58 Urine Urobilinogen Normal mg/dL (0.2-1.0) 07/19/17 03:58 Ur Leukocyte Esterase Neg Colette/uL (Negative) 07/19/17 03:58 Urine WBC (Auto) < 1 /hpf (0-5) 07/19/17 03:58 Urine RBC (Auto) 1 /hpf (0-3) 07/19/17 03:58 Urine Opiates Screen Positive (NEGATIVE) H 07/19/17 03:58 Urine Methadone Screen Negative (NEGATIVE) 07/19/17 03:58 Ur Barbiturates Screen Negative (NEGATIVE) 07/19/17 03:58 Ur Phencyclidine Scrn Negative (NEGATIVE) 07/19/17 03:58 Ur Amphetamines Screen Negative (NEGATIVE) 07/19/17 03:58 U Benzodiazepines Scrn Negative (NEGATIVE) 07/19/17 03:58 U Oth Cocaine Metabols Negative (NEGATIVE) 07/19/17 03:58 U Cannabinoids Screen Negative (NEGATIVE) 07/19/17 03:58 Alcohol, Quantitative < 20 mg/dl (0-10) H 07/19/17 02:54 TONY 6 Profile Negative (NEGATIVE) 07/20/17 08:43 Blood Type O POSITIVE 07/19/17 03:09 Antibody Screen Negative 07/19/17 03:09 - Hospital Course Hospital Course: Discharge Summary PMD: None Consults:Surgery (Dr. Brennan), GI (Dr. Valentine) PRINCIPAL DISCHARGE DIAGNOSES: Pancreatitis Type 2 DM CC: abdominal pain This is a 47 year old Greek speaking male with PMHx pancreatitis who presents brought in by EMS when found slumped over in pain next to a building. Per patient, he experienced severe epigastric abdominal pain that began after eating a meal earlier in the evening. Pain was so severe that he was unable to communicate. After being given Morphine in the ED, patient noted improvement in pain and was able to communicate with staff. Patient has been here in the [place] for a few months per relatives at bedside. Patient states that he had a prior episode of pancreatitis about a [place] ago [place] that had similar presenting symptoms. PMHx: Pancreatitis PSHx: Denies Allergies: NKDA Social: Denies tobacco, alcohol, drugs. Family Hx: Denies Home medication: Denies SUMMARY OF COURSE:47 year old male who was admitted to [facility] (07/19/17- 07/23/17). While admitted the patient was seen by Surgery, GI, and Neurology. The patient had labs drawn and imaging down(can review below). Patient was found to be negative for any acute head injury. While admitted the patient was found to have pancreatitis and was placed on NPO and given fluids. Initially the patient denied any alcohol use past, however upon questioning again he admitted to alcohol use in the past and a previous episode of pancreatitis in the past. The patient was seen by Surgery who recommended no surgical intervention at this time. The patient was seen by GI who recommended an MRCP. The patient had an MRCP that was negative for gallstones or pancreatic divisum. The patient's lipase when rechecked was trending down. The patient diet was advanced and he tolerated it without any issue. The patient's A1C% was found to be 6.8%. Patient was examined today and determined to be discharged today. Imaging: CT Abdomen/pelvis shows heterogeneous edematous pancreatic parenchyma with surrounding fluid. Findings supportive of pancreatitis. MRCP:limitred study, nonspecific bibasilar changes, heterogeneous appearance pancreatic parenchyma with parish-pancreatic inflammation changes, fluid in the left upper quadrant, consistent with acute pancreatitis Abdomen xray:negative Abdomen ultrasound: thickened and heterogenous pancreas consistent with known pancreatitis, small amount of free fluid in the spleen MRI of stomach: herterogenous appearance of pancreatic parenchyma with peripancreatic inflammatory changes, appearance consistent with pancreatitis chest xray: mild venous congestion, right hilar prominence cta head and neck: dominent left vertebral artery CHEST CT: negative for acute findings. EKG: NSR @73BPM. (See full report) 1). Schedule follow up with [facility] [address] located at [address] [place] [address] in [place], [place] by calling [phone] for an appointment to take place in the next 7 to 10 days. The physicians at [facility] can help you to coordinate your care and provide you with future prescriptions and refills. 2). Advised patient to make lifestyle modifications: (eat more vegetables, avoid simple starches like white rice, breads, and to get at least 45 minutes of activity for at least 4 times to 5 times a week). 3. Advised patient to return to hospital for any new or worsening symptoms. Discharged Medications: 1. Metformin 500mg PO BID, #60 Discharge Exam - Head Exam Head Exam: ATRAUMATIC, NORMAL INSPECTION, NORMOCEPHALIC - Eye Exam Eye Exam: EOMI, Normal appearance, PERRL. absent: Periorbital tenderness Pupil Exam: NORMAL ACCOMODATION, PERRL. absent: Irregular, Unequal - ENT Exam ENT Exam: Mucous Membranes Moist, Normal Oropharynx - Respiratory Exam Respiratory Exam: Clear to PA & Lateral, NORMAL BREATHING PATTERN, UNREMARKABLE. absent: Decreased Breath Sounds, Rales, Rhonchi, Stridor - GI/Abdominal Exam GI & Abdominal Exam: Normal Bowel Sounds, Soft, Unremarkable. absent: Distended , Hypoactive Bowel Sounds, Organomegaly - Extremities Exam Extremities exam: full ROM, normal inspection - Back Exam Back exam: NORMAL INSPECTION. absent: CVA tenderness (L), CVA tenderness (R), paraspinal tenderness - Neurological Exam Neurological exam: Alert, CN II-XII Intact, Normal Gait, Oriented x3 - Psychiatric Exam Psychiatric exam: Normal Affect, Normal Mood - Skin Skin Exam: Dry, Intact, Normal Color, Warm Discharge Plan - Discharge Medications Prescriptions: metFORMIN [glucOPHAGE] 500 mg PO BID #60 tab - Follow Up Plan Condition: GUARDED Disposition: HOME/ ROUTINE Instructions: Metformin (By mouth), Pancreatitis (DC), Diabetic Foot Care (DC) , Diabetes Mellitus Type 2 in Adults (DC), Basic Carbohydrate Counting (DC), Meal Planning with the Plate Method (DC), Meal Planning with Diabetes Exchanges (DC) Additional Instructions: 1). Schedule follow up with [facility] [address] located at [address] [place] [address] in [place], [place] by calling [phone] for an appointment to take place in the next 7 to 10 days. The physicians at this [facility] can help you to coordinate your care and provide you with future prescriptions and refills. 2). Advised patient to make lifestyle modifications: (eat more vegetables, avoid simple starches like white rice, breads, and to get at least 45 minutes of activity for at least 4 times to 5 times a week). 3. Advised patient to return to hospital for any new or worsening symptoms. Discharged Medications: 1. Metformin 500mg PO BID, #60 Referrals: [facility] [Outside] <Pamela Palacios - Last Filed: 07/23/17 18:33> Provider - Provider Date of Admission: 07/19/17 05:10 Attending physician: Giovanni Birch, DO Hospital Course - Lab Results Lab Results: Most Recent Lab Values WBC 6.0 K/uL (4.8-10.8) 07/23/17 06:43 RBC 5.09 Mil/uL (4.40-5.90) 07/23/17 06:43 Hgb 14.8 g/dL (12.0-18.0) 07/23/17 06:43 Hct 42.0 % (35.0-51.0) 07/23/17 06:43 MCV 82.6 fL (80.0-94.0) 07/23/17 06:43 MCH 29.1 pg (27.0-31.0) 07/23/17 06:43 MCHC 35.2 g/dL (33.0-37.0) 07/23/17 06:43 RDW 12.5 % (11.5-14.5) 07/23/17 06:43 Plt Count 201 K/uL (130-400) 07/23/17 06:43 MPV 9.8 fL (7.2-11.7) 07/23/17 06:43 Neut % (Auto) 55.5 % (50.0-75.0) 07/23/17 06:43 Lymph % (Auto) 28.8 % (20.0-40.0) 07/23/17 06:43 [place] % (Auto) 10.1 % (0.0-10.0) H 07/23/17 06:43 Eos % (Auto) 5.2 % (0.0-4.0) H 07/23/17 06:43 Baso % (Auto) 0.4 % (0.0-2.0) 07/23/17 06:43 Neut # (Auto) 3.3 K/uL (1.8-7.0) 07/23/17 06:43 Lymph # (Auto) 1.7 K/uL (1.0-4.3) 07/23/17 06:43 [place] # (Auto) 0.6 K/uL (0.0-0.8) 07/23/17 06:43 Eos # (Auto) 0.3 K/uL (0.0-0.7) 07/23/17 06:43 Baso # (Auto) 0.0 K/uL (0.0-0.2) 07/23/17 06:43 PT 11.0 SECONDS (9.7-12.2) 07/19/17 02:54 INR 1.0 07/19/17 02:54 APTT 30 SECONDS (21-34) 07/19/17 02:54 pO2 17 mm/Hg (30-55) L 07/19/17 03:00 VBG pH 7.34 (7.32-7.43) 07/19/17 03:00 VBG pCO2 56 mmHg (40-60) 07/19/17 03:00 VBG HCO3 25.3 mmol/L 07/19/17 03:00 VBG Total CO2 31.9 mmol/L (22-28) H 07/19/17 03:00 VBG O2 Sat (Calc) 25.9 % (40-65) L 07/19/17 03:00 VBG Base Excess 3.1 mmol/L (0.0-2.0) H 07/19/17 03:00 VBG Potassium 2.9 mmol/L (3.6-5.2) L 07/19/17 03:00 Sodium 138.0 mmol/l (132-148) 07/19/17 03:00 Chloride 100.0 mmol/L (98-107) 07/19/17 03:00 Glucose 172 mg/dl (75-110) H 07/19/17 03:00 Lactate 1.7 mmol/L (0.7-2.1) 07/19/17 03:00 Crit Value Called To Dr pool 07/19/17 03:00 Crit Value Called By Radha buenrostro rt 07/19/17 03:00 Crit Value Read Back Y 07/19/17 03:00 Blood Gas Notified Time 305 07/19/17 03:00 Sodium 136 mmol/L (132-148) 07/23/17 06:43 Potassium 4.1 mmol/L (3.6-5.2) 07/23/17 06:43 Chloride 98 mmol/L (98-107) 07/23/17 06:43 Carbon Dioxide 28 mmol/L (22-30) 07/23/17 06:43 Anion Gap 15 (10-20) 07/23/17 06:43 BUN 10 mg/dL (9-20) 07/23/17 06:43 Creatinine 0.9 mg/dL (0.8-1.5) 07/23/17 06:43 Est GFR ( Amer) > 60 07/23/17 06:43 Est GFR (Non-Af Amer) > 60 07/23/17 06:43 POC Glucose (mg/dL) 101 mg/dL (65-110) 07/23/17 16:48 Random Glucose 109 mg/dL (75-110) 07/23/17 06:43 Hemoglobin A1c 6.8 % (4.2-6.5) H 07/19/17 02:54 Calcium 9.0 mg/dl (8.6-10.4) 07/23/17 06:43 Phosphorus 4.8 mg/dL (2.5-4.5) H 07/23/17 06:43 Magnesium 1.8 mg/dL (1.6-2.3) 07/23/17 06:43 Total Bilirubin 0.6 mg/dL (0.2-1.3) 07/23/17 06:43 AST 16 U/L (17-59) L 07/23/17 06:43 ALT 27 U/L (21-72) 07/23/17 06:43 Alkaline Phosphatase 44 U/L (38-126) 07/23/17 06:43 Lactate Dehydrogenase 335 U/L (313-618) 07/21/17 06:47 Troponin I < 0.0120 ng/mL (0.00-0.120) 07/19/17 02:54 Total Protein 6.9 g/dL (6.3-8.3) 07/23/17 06:43 Albumin 3.8 g/dL (3.5-5.0) 07/23/17 06:43 Globulin 3.1 gm/dL (2.2-3.9) 07/23/17 06:43 Albumin/Globulin Ratio 1.2 (1.0-2.1) 07/23/17 06:43 Triglycerides 110 mg/dL (0-149) 07/20/17 08:43 Cholesterol 170 mg/dL (0-199) 07/20/17 08:43 LDL Cholesterol Direct 117 mg/dL (0-129) 07/20/17 08:43 HDL Cholesterol 40 mg/dL (30-70) 07/20/17 08:43 Lipase 526 U/L (23-300) H 07/21/17 06:47 Venous Blood Potassium 2.9 mmol/L (3.6-5.2) L 07/19/17 03:00 Urine Color Straw (YELLOW) 07/19/17 03:58 Urine Clarity Clear (Clear) 07/19/17 03:58 Urine pH 6.0 (5.0-8.0) 07/19/17 03:58 Ur Specific [place] 1.035 (1.003-1.030) H 07/19/17 03:58 Urine Protein Negative mg/dL (NEGATIVE) 07/19/17 03:58 Urine Glucose (UA) 2+ mg/dL (Normal) H 07/19/17 03:58 Urine Ketones Negative mg/dL (NEGATIVE) 07/19/17 03:58 Urine Blood Negative (NEGATIVE) 07/19/17 03:58 Urine Nitrate Negative (NEGATIVE) 07/19/17 03:58 Urine Bilirubin Negative (NEGATIVE) 07/19/17 03:58 Urine Urobilinogen Normal mg/dL (0.2-1.0) 07/19/17 03:58 Ur Leukocyte Esterase Neg [place]lette/uL (Negative) 07/19/17 03:58 Urine WBC (Auto) < 1 /hpf (0-5) 07/19/17 03:58 Urine RBC (Auto) 1 /hpf (0-3) 07/19/17 03:58 Urine Opiates Screen Positive (NEGATIVE) H 07/19/17 03:58 Urine Methadone Screen Negative (NEGATIVE) 07/19/17 03:58 Ur Barbiturates Screen Negative (NEGATIVE) 07/19/17 03:58 Ur Phencyclidine Scrn Negative (NEGATIVE) 07/19/17 03:58 Ur Amphetamines Screen Negative (NEGATIVE) 07/19/17 03:58 U Benzodiazepines Scrn Negative (NEGATIVE) 07/19/17 03:58 U Oth Cocaine Metabols Negative (NEGATIVE) 07/19/17 03:58 U Cannabinoids Screen Negative (NEGATIVE) 07/19/17 03:58 Alcohol, Quantitative < 20 mg/dl (0-10) H 07/19/17 02:54 TONY 6 Profile Negative (NEGATIVE) 07/20/17 08:43 Blood Type O POSITIVE 07/19/17 03:09 Antibody Screen Negative 07/19/17 03:09 Attending/Attestation - Attestation I have personally seen and examined this patient.: Yes I have fully participated in the care of the patient.: Yes I have reviewed all pertinent clinical information, including history, physical exam and plan: Yes Notes (Text): Patient was seen and examined He is tolerating diet. abdomen is benign d/c home continue home meds 07/23/17 18:32
[2017-07-23 16:02] VITALS: BP 135/84; PULSE 82; TEMP 98; O2SAT 95
== END 2017-07-23 18:17 | disposition home or self-care (01) | DRG 439 ==
LOC: EDBD 02:30 → C.ER 02:30 → C.9E 05:10 → C.6T 17:07
PROVIDERS: ADMIT Hospitalist; ATTEND Hospitalist
DX: K85.90 Acute pancreatitis without necrosis or infection, unspecified (principal); K56.7 Ileus, unspecified; E86.0 Dehydration; E87.6 Hypokalemia; Z79.84 Long term (current) use of oral hypoglycemic drugs; E11.9 Type 2 diabetes mellitus without complications; Z79.4 Long term (current) use of insulin